=== PATIENT | female | born 1985 | race Caucasian/White ===

== ENCOUNTER → 2016-05-06 | Outpatient (CLI) | payer OTHER ==
--- NOTE | 2016-05-06 11:14 | REP ---
Clinical: Constipation. Technique: Upright view of the chest with supine and upright views of the abdomen and pelvis. Findings: Frontal view of the chest demonstrates no acute cardiopulmonary process or free air below the diaphragm to suspect pneumoperitoneum. Supine and upright views of the abdomen and pelvis suggest fecal stasis and possible constipation. Bowel gas pattern is otherwise nonspecific and without evidence for obstruction or perforation. No organomegaly. No abnormal calcifications. Skeletal structures intact. Impression: Mild fecal stasis and constipation suggested. Signed by Kumar Rodríguez MD 05/06/2016 11:06 A
--- NOTE | 2016-05-06 11:18 | REP ---
Clinical: Bronchitis type symptoms. Comparison: 01/12/2007 . Technique: PA and lateral. Findings: The mediastinum and cardiac silhouette are normal. The lung meza are clear and without acute consolidation, effusion, or pneumothorax. The skeletal structures are intact and normal. Impression: 1. No acute cardiopulmonary process. Signed by Kumar Rodríguez MD 05/06/2016 11:10 A
[2016-05-06 13:00] LABS: BASO # 0.2 K/mm3 (0.0-0.2); BASO % 2.4 % (0.0-1.0); EOS # 0.3 K/mm3 (0.0-0.50); EOS % 2.6 % (0.0-3.0); LARGE UNSTAINED CELL # 0.2 K/mm3 (0.0-0.4); LARGE UNSTAINED CELL % 1.9 % (0.0-4.0); LYMPH % 28.3 % (24.0-44.0); MEAN CORPUSCULAR HEMOGLOBIN 28.6 pg (27.0-33.0); MEAN CORPUSCULAR VOLUME 86.9 fl (80.0-96.0); MONO # 0.6 K/mm3 (0.0-0.8); MONO % 5.7 % (0.0-5.0); NEUTROPHILS # 5.9 K/mm3 (1.8-7.7); NEUTROPHILS % 59.1 % (36.0-66.0); PLATELET COUNT, AUTOMATED 291 k/mm3 (150-450); RED CELL DISTRIBUTION WIDTH 12.9 % (11.5-14.5)
[2016-05-06 14:07] LABS: ALBUMIN 3.7 GM/DL (3.2-5.2); ALBUMIN/GLOBULIN RATIO 1.19 (1.00-1.93); ALKALINE PHOSPHATASE 99 U/L (45-117); ALT/SGPT 34 U/L (12-78); ANION GAP 8 MEQ/L (8-16); AST/SGOT 25 U/L (15-37); BILIRUBIN,TOTAL 0.3 MG/DL (0.2-1.0); BLOOD UREA NITROGEN 12 MG/DL (7-18); CALCIUM LEVEL 8.7 MG/DL (8.5-10.1); CARBON DIOXIDE LEVEL 27 MEQ/L (21-32); CHLORIDE LEVEL 104 MEQ/L (98-107); CREATININE FOR GFR 0.93 MG/DL (0.55-1.02); GLOMERULAR FILTRATION RATE > 60.0 (>60); GLUCOSE, FASTING 90 MG/DL (70-105); POTASSIUM SERUM 4.7 MEQ/L (3.5-5.1); SODIUM LEVEL 139 MEQ/L (136-145); TOTAL PROTEIN 6.8 GM/DL (6.4-8.2)
== END ==
LOC: M WUC 10:32
PROVIDERS: ATTEND Physician Assistant
DX: J20.9 Acute bronchitis, unspecified (principal); K59.00 Constipation, unspecified; E10.9 Type 1 diabetes mellitus without complications

== ENCOUNTER → 2016-07-05 | Outpatient (REF) | payer OTHER ==
[2016-07-05 12:04] LABS: ALBUMIN 3.4 GM/DL (3.2-5.2); ALBUMIN/GLOBULIN RATIO 1.21 (1.00-1.93); ALKALINE PHOSPHATASE 103 U/L (45-117); ALT/SGPT 24 U/L (12-78); ANION GAP 7 MEQ/L (8-16); AST/SGOT 13 U/L (15-37); BILIRUBIN,TOTAL 0.2 MG/DL (0.2-1.0); BLOOD UREA NITROGEN 21 MG/DL (7-18); CALCIUM LEVEL 8.3 MG/DL (8.5-10.1); CARBON DIOXIDE LEVEL 26 MEQ/L (21-32); CHLORIDE LEVEL 109 MEQ/L (98-107); CHOLESTEROL LEVEL 204 MG/DL (<200); CREATININE FOR GFR 0.91 MG/DL (0.55-1.02); GLOMERULAR FILTRATION RATE > 60.0 (>60); GLUCOSE, FASTING 218 MG/DL (70-105); SODIUM LEVEL 142 MEQ/L (136-145); TOTAL PROTEIN 6.2 GM/DL (6.4-8.2); TRIGLYCERIDES LEVEL 115 MG/DL (<150)
[2016-07-05 12:06] LABS: POTASSIUM SERUM 5.2 MEQ/L (3.5-5.1)
== END ==
LOC: M SFHCCLAY 08:01
PROVIDERS: ATTEND Nurse Practitioner
DX: E10.9 Type 1 diabetes mellitus without complications (principal)

== ENCOUNTER → 2016-07-14 | Outpatient (REF) | payer OTHER ==
[2016-07-15 11:44] LABS: CALCIUM LEVEL 8.8 MG/DL (8.5-10.1); CREATININE FOR GFR 1.16 MG/DL (0.55-1.02); GLOMERULAR FILTRATION RATE 58.4 (>60); POTASSIUM SERUM 4.8 MEQ/L (3.5-5.1)
== END ==
LOC: M SFHCCLAY 15:16
PROVIDERS: ATTEND Nurse Practitioner
DX: N39.3 Stress incontinence (female) (male) (principal); E87.5 Hyperkalemia

== ENCOUNTER → 2016-10-08 | Outpatient (REF) | payer OTHER | LOC: M LAB REF 18:38 | PROVIDERS: ATTEND Physician Assistant | DX: J02.9 Acute pharyngitis, unspecified (principal) ==

== ENCOUNTER → 2016-10-20 | Outpatient (REF) | payer OTHER ==
[~2016-10-20] MED LIST: ASPI81TA85 PO; ATIV1TAB7 PO; HUMALOG PUMP; LISI40TAB PO; ZOLO50TA PO
== END ==
LOC: M LAB REF 17:14
PROVIDERS: ATTEND Specialist
DX: N39.3 Stress incontinence (female) (male) (principal)

== ENCOUNTER → 2016-10-22 | Outpatient (REF) | payer OTHER ==
[2016-10-22 16:48] LABS: ANION GAP 6 MEQ/L (8-16); BLOOD UREA NITROGEN 24 MG/DL (7-18); CALCIUM LEVEL 9.5 MG/DL (8.5-10.1); CARBON DIOXIDE LEVEL 28 MEQ/L (21-32); CHLORIDE LEVEL 107 MEQ/L (98-107); CREATININE FOR GFR 0.96 MG/DL (0.55-1.02); GLOMERULAR FILTRATION RATE > 60.0 (>60); GLUCOSE, FASTING 94 MG/DL (70-105); POTASSIUM SERUM 4.8 MEQ/L (3.5-5.1); SODIUM LEVEL 141 MEQ/L (136-145)
[2016-10-22 17:10] LABS: ALBUMIN 3.7 GM/DL (3.2-5.2); ALBUMIN/GLOBULIN RATIO 1.23 (1.00-1.93); ALKALINE PHOSPHATASE 108 U/L (45-117); ALT/SGPT 23 U/L (12-78); ANION GAP 7 MEQ/L (8-16); AST/SGOT 9 U/L (15-37); BILIRUBIN,TOTAL 0.2 MG/DL (0.2-1.0); BLOOD UREA NITROGEN 24 MG/DL (7-18); CALCIUM LEVEL 9.8 MG/DL (8.5-10.1); CARBON DIOXIDE LEVEL 27 MEQ/L (21-32); CHLORIDE LEVEL 107 MEQ/L (98-107); CHOLESTEROL LEVEL 197 MG/DL (<200); CREATININE FOR GFR 0.95 MG/DL (0.55-1.02); GLOMERULAR FILTRATION RATE > 60.0 (>60); GLUCOSE, FASTING 93 MG/DL (70-105); POTASSIUM SERUM 4.9 MEQ/L (3.5-5.1); SODIUM LEVEL 141 MEQ/L (136-145); TOTAL PROTEIN 6.7 GM/DL (6.4-8.2); TRIGLYCERIDES LEVEL 133 MG/DL (<150)
[2016-10-22 17:13] LABS: MEAN CORPUSCULAR HEMOGLOBIN 28.7 pg (27.0-33.0); MEAN CORPUSCULAR HGB CONC 33.4 g/dl (32.0-36.5); MEAN CORPUSCULAR VOLUME 85.8 fl (80.0-96.0); RED CELL DISTRIBUTION WIDTH 12.4 % (11.5-14.5); WHITE BLOOD COUNT 10.6 K/mm3 (4.0-10.0)
== END ==
LOC: M SFHCCLAY 10:10
PROVIDERS: ATTEND Nurse Practitioner
DX: E11.40 Type 2 diabetes mellitus with diabetic neuropathy, unspecified (principal)

== ENCOUNTER → 2016-11-05 | Day surgery (SDC) | payer OTHER ==
[~2016-11-05] VITALS: Ht 160 cm; Wt 91.6 kg
[~2016-11-05] MED LIST changes: +CETACAINE SPRAY 20GM (FLOOR STOCK) As Ordered ONE; +EPINEPHrine 1MG/ML INJ 30ML MD-VIAL As Ordered ONE; +LR 1,000 ML IV ONE; +LR 1,000 ML IV SCH; +MEPERIDINE INJ 25 MG/ML VIAL (J2175) IV PRN; +METHYLENE BLUE 0.5% (5MG/ML) 10 ML AMP (PROVAYBLUE)(Q9968 PER 1MG) As Ordered ONE; +METOCLOPRAMIDE INJ 10MG/2ML VIAL (J2765) IV PRN; +MIDAZOLAM INJ 2 MG/2 ML VIAL (J2250) As Ordered ONE; +ONDANSETRON 4MG/2ML VIAL (J2405) As Ordered ONE; +ONDANSETRON 4MG/2ML VIAL (J2405) IV PRN; +OXYMETAZOLINE NASAL SPRAY (AFRIN) As Ordered ONE; +PERCOCET 5MG/325MG TAB PO PRN; +PROPOFOL 200 MG/20 ML VIAL As Ordered ONE; +SUGAMMADEX SODIUM 500 MG/5 ML VIAL (BRIDION) As Ordered ONE; +fentaNYL 100 MCG/2 ML INJECTION (J3010) As Ordered ONE
[2016-11-05 09:51] LABS: CONTROL LINE UCG INT CTR LINE PRESENT
[2016-11-05] MEDS: fentaNYL 100 MCG/2 ML INJECTION (J3010) IV PRN ×2 (13:05→13:10)
[2016-11-05 14:55] VITALS: BP 141/84
--- NOTE | 2016-11-06 10:51 | RO ---
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 OPERATIVE PROCEDURE: Laryngoscopy and biopsy with suspension, microscope and esophagoscopy. SURGEON: Julio Reis MD RESIDENT SERVICE COORDINATOR: ANESTHESIA: FINDINGS: There were some leukoplakia anterior one-half of the left vocal cord. Biopsy was taken. DESCRIPTION OF PROCEDURE: Under general anesthesia, the patient intubated, the patient was draped in the usual manner. I used a dental guard during the procedure. I inserted the laryngoscope into the oral cavity, oropharynx and down into the larynx. I examined the area. The above findings were seen. I did biopsy the left vocal cord. Then, I removed the laryngoscope. I placed the rigid esophagoscope and passed it down behind the larynx. I then advanced it through the cricopharyngeal opening into the upper esophagus and then down to the lower esophagus to the stomach. No other nodules were seen. The patient tolerated the procedure well. The scope was removed. The patient was then extubated and transferred to the recovery room in excellent condition.
== END | disposition home or self-care (01) ==
LOC: M SDC 09:16
PROVIDERS: ATTEND Otolaryngology
DX: J38.3 Other diseases of vocal cords (principal); J37.0 Chronic laryngitis; R13.10 Dysphagia, unspecified; E10.9 Type 1 diabetes mellitus without complications; I10 Essential (primary) hypertension; R19.7 Diarrhea, unspecified; M81.0 Age-related osteoporosis without current pathological fracture; F32.9 Major depressive disorder, single episode, unspecified; J42 Unspecified chronic bronchitis; Z79.899 Other long term (current) drug therapy; Z79.82 Long term (current) use of aspirin; Z79.4 Long term (current) use of insulin; Z87.891 Personal history of nicotine dependence

== ENCOUNTER → 2016-11-26 | Outpatient (CLI) | payer OTHER ==
[~2016-11-26] MED LIST changes: -CETACAINE SPRAY 20GM (FLOOR STOCK) As Ordered ONE; -EPINEPHrine 1MG/ML INJ 30ML MD-VIAL As Ordered ONE; -LR 1,000 ML IV ONE; -LR 1,000 ML IV SCH; -MEPERIDINE INJ 25 MG/ML VIAL (J2175) IV PRN; -METHYLENE BLUE 0.5% (5MG/ML) 10 ML AMP (PROVAYBLUE)(Q9968 PER 1MG) As Ordered ONE; -METOCLOPRAMIDE INJ 10MG/2ML VIAL (J2765) IV PRN; -MIDAZOLAM INJ 2 MG/2 ML VIAL (J2250) As Ordered ONE; -ONDANSETRON 4MG/2ML VIAL (J2405) As Ordered ONE; -ONDANSETRON 4MG/2ML VIAL (J2405) IV PRN; -OXYMETAZOLINE NASAL SPRAY (AFRIN) As Ordered ONE; -PERCOCET 5MG/325MG TAB PO PRN; -PROPOFOL 200 MG/20 ML VIAL As Ordered ONE; -SUGAMMADEX SODIUM 500 MG/5 ML VIAL (BRIDION) As Ordered ONE; -fentaNYL 100 MCG/2 ML INJECTION (J3010) As Ordered ONE
--- NOTE | 2016-11-26 22:20 | REP ---
Soft-tissue neck ultrasound: 11/26/2016. Clinical history: Palpable lump about the left lateral neck just below her ear; states it was biopsied by ENT. Still uncomfortable. I do not have any prior pertinent studies. Findings: Sonographic evaluation in the subauricular region where the patient reported a palpable finding although she was not able to locate that finding today. Subcutaneous soft tissues show no discrete mass, cyst, architectural distortion or other acute finding. Impression: 1. No soft tissue nodule or mass in the neck in the region the patient indicated was problematic for her. There is a persistent palpable finding. Other imaging may be helpful, including CT of the neck, if not already done elsewhere. Signed by Yuval Bose MD 11/26/2016 10:39 P
== END ==
LOC: M RAD 16:39
PROVIDERS: ATTEND Nurse Practitioner
DX: R13.10 Dysphagia, unspecified (principal)

== ENCOUNTER → 2017-01-12 | Outpatient (CLI) | payer OTHER ==
[2017-01-12 14:33] LABS: HBsAg Prenatal NEGATIVE (NEGATIVE)
[2017-01-12 14:38] LABS: BASO % 0.4 % (0.0-1.0); EOS # 0.2 K/mm3 (0.0-0.50); EOS % 1.9 % (0.0-3.0); LARGE UNSTAINED CELL # 0.1 K/mm3 (0.0-0.4); LARGE UNSTAINED CELL % 1.1 % (0.0-4.0); LYMPH # 1.6 K/mm3 (1.5-4.5); LYMPH % 18.8 % (24.0-44.0); MEAN CORPUSCULAR HEMOGLOBIN 29.1 pg (27.0-33.0); MEAN CORPUSCULAR VOLUME 85.5 fl (80.0-96.0); MONO # 0.4 K/mm3 (0.0-0.8); MONO % 4.2 % (0.0-5.0); NEUTROPHILS # 6.4 K/mm3 (1.8-7.7); NEUTROPHILS % 73.5 % (36.0-66.0); PLATELET COUNT, AUTOMATED 247 k/mm3 (150-450); RED CELL DISTRIBUTION WIDTH 12.5 % (11.5-14.5); WHITE BLOOD COUNT 8.7 K/mm3 (4.0-10.0)
== END ==
LOC: M WUC 09:21
PROVIDERS: ATTEND Specialist
DX: Z36 Encounter for antenatal screening of mother (principal); Z3A.00 Weeks of gestation of pregnancy not specified

== ENCOUNTER → 2017-01-14 | Outpatient (REF) | payer OTHER | LOC: M LAB REF 12:55 | PROVIDERS: ATTEND Specialist | DX: Z36 Encounter for antenatal screening of mother (principal); Z3A.00 Weeks of gestation of pregnancy not specified ==

== ENCOUNTER → 2017-03-22 | Outpatient (CLI) | payer OTHER ==
--- NOTE | 2017-03-22 14:12 | REP ---
Clinical: Anatomical evaluation. Comparison: None . Findings: Examination demonstrates a single live intrauterine in transverse (head to maternal left side) presentation. motion is identified by technologist. Placenta is noted anteriorly and grade zero without evidence for placenta previa or abruption. Amniotic fluid volume is normal. Cervix measures 3.1 cm in length and appears closed. No evidence for nuchal cord. Gestational age by current measurements 20 weeks 3-day with JAVAN is 08/06/2017 . FHR equals 149 beats per minute. BPD 5..0 cm 21 weeks 1 day HC 17.8 cm 20 weeks 2 days AC 15.9 cm 21 weeks 0 days FL 3.3 cm 20 weeks 2 days HL 3.2 cm 20 weeks 4-day HC/AC ratio 1.12 Estimated weight 360 grams ( 56 percentile). Anatomical assessment demonstrates normal structures including cranium, choroid plexus, cavum, cerebellum/posterior fossa, facial features, lungs, four-chamber heart/ left ventricular outflow tract, diaphragm, stomach, cord insertion/three-vessel cord, kidneys/bladder, and extremities. Impression: 1. Single live intrauterine in transverse lie. Estimated weight within normal range. 2. Limited evaluation of the right cardiac ventricular outflow tract and spine due to positioning. Remainder of the anatomical assessment is complete and normal. Signed by Kumar Rodríguez MD 03/22/2017 02:03 P
== END ==
LOC: M SMT 12:58
PROVIDERS: ATTEND Specialist
DX: Z36.89 Encounter for other specified antenatal screening (principal); Z3A.20 20 weeks gestation of pregnancy

== ENCOUNTER → 2017-04-11 | Outpatient (REF) | payer OTHER | LOC: M LAB REF 18:36 | PROVIDERS: ATTEND Physician Assistant | DX: R10.30 Lower abdominal pain, unspecified (principal) ==

== ENCOUNTER → 2017-04-28 | Outpatient (CLI) | payer OTHER ==
[2017-04-28 12:22] LABS: HEMATOCRIT 31.8 % (36.0-47.0); HEMOGLOBIN 10.2 g/dl (12.0-16.0); MEAN CORPUSCULAR HEMOGLOBIN 27.6 pg (27.0-33.0); MEAN CORPUSCULAR HGB CONC 32.1 g/dl (32.0-36.5); MEAN CORPUSCULAR VOLUME 86.2 fl (80.0-96.0); PLATELET COUNT, AUTOMATED 256 10^3/uL (150-450); RED BLOOD COUNT 3.69 10^6/uL (4.00-5.40); RED CELL DISTRIBUTION WIDTH 12.6 % (11.5-14.5); WHITE BLOOD COUNT 10.7 10^3/uL (4.0-10.0)
== END ==
LOC: M SMT 09:04
DX: O24.112 Pre-existing type 2 diabetes mellitus, in pregnancy, second trimester (principal); Z36.89 Encounter for other specified antenatal screening; Z3A.25 25 weeks gestation of pregnancy
CPT/HCPCS: 85027

== ENCOUNTER → 2017-05-30 | Outpatient (CLI) | payer OTHER ==
[2017-05-30 13:59] LABS: ESTIMATED AVERAGE GLUCOSE 137 MG/DL (60-110); HEMOGLOBIN A1c 6.4 %
== END ==
LOC: M SMT 09:15
DX: O24.012 Pre-existing type 1 diabetes mellitus, in pregnancy, second trimester (principal); Z3A.30 30 weeks gestation of pregnancy; E10.9 Type 1 diabetes mellitus without complications
CPT/HCPCS: 83036

== ENCOUNTER → 2017-06-08 | Outpatient (REF) | payer OTHER | LOC: M LAB REF 16:06 | DX: R11.2 Nausea with vomiting, unspecified (principal) | CPT/HCPCS: 87086 ==

== ENCOUNTER → 2017-06-17 | Outpatient (REF) | payer OTHER | LOC: M LAB REF 14:39 | DX: K59.1 Functional diarrhea (principal) ==

== ENCOUNTER → 2017-06-21 | Outpatient (CLI) | payer OTHER ==
[2017-06-21 17:36] LABS: BASO % 0.4 % (0.0-1.0); EOS # 0.1 10^3/uL (0.0-0.50); HEMATOCRIT 33.5 % (36.0-47.0); IMMATURE GRANULOCYTE % 0.7 % (0-3.0); LYMPH # 1.9 10^3/uL (1.5-4.5); MEAN CORPUSCULAR HEMOGLOBIN 27.7 pg (27.0-33.0); MEAN CORPUSCULAR HGB CONC 32.8 g/dl (32.0-36.5); MEAN CORPUSCULAR VOLUME 84.4 fl (80.0-96.0); MONO # 0.7 10^3/uL (0.0-0.8); MONO % 5.7 % (0.0-5.0); NEUTROPHILS # 8.6 10^3/uL (1.8-7.7); NEUTROPHILS % 75.2 % (36.0-66.0); PLATELET COUNT, AUTOMATED 253 10^3/uL (150-450); RED BLOOD COUNT 3.97 10^6/uL (4.00-5.40); RED CELL DISTRIBUTION WIDTH 13.2 % (11.5-14.5); WHITE BLOOD COUNT 11.4 10^3/uL (4.0-10.0)
[2017-06-21 18:00] LABS: ALBUMIN 2.5 GM/DL (3.2-5.2); ALBUMIN/GLOBULIN RATIO 0.76 (1.00-1.93); ALKALINE PHOSPHATASE 132 U/L (45-117); ALT/SGPT 14 U/L (12-78); ANION GAP 9 MEQ/L (8-16); AST/SGOT 14 U/L (7-37); BILIRUBIN,TOTAL 0.2 MG/DL (0.2-1.0); BLOOD UREA NITROGEN 14 MG/DL (7-18); CALCIUM LEVEL 8.9 MG/DL (8.5-10.1); CARBON DIOXIDE LEVEL 22 MEQ/L (21-32); CHLORIDE LEVEL 109 MEQ/L (98-107); CREATININE FOR GFR 0.91 MG/DL (0.55-1.30); GLOMERULAR FILTRATION RATE > 60.0 (>60); GLUCOSE, FASTING 141 MG/DL (70-100); POTASSIUM SERUM 4.9 MEQ/L (3.5-5.1); SODIUM LEVEL 140 MEQ/L (136-145); TOTAL PROTEIN 5.8 GM/DL (6.4-8.2)
== END ==
LOC: M WUC 13:56
DX: O24.113 Pre-existing type 2 diabetes mellitus, in pregnancy, third trimester (principal); Z3A.00 Weeks of gestation of pregnancy not specified
CPT/HCPCS: 80053

== ENCOUNTER → 2017-07-04 | Outpatient (CLI) | payer OTHER | LOC: M SMT 12:59 | DX: O24.113 Pre-existing type 2 diabetes mellitus, in pregnancy, third trimester (principal); Z3A.35 35 weeks gestation of pregnancy | CPT/HCPCS: 76815 ==

== ENCOUNTER 2017-07-10 11:22 | Outpatient (CLI) | payer OTHER | END 2017-07-10 12:35 | disposition home or self-care (01) | LOC: M LDO 11:22 | DX: O26.893 Other specified pregnancy related conditions, third trimester (principal); O99.810 Abnormal glucose complicating pregnancy; Z96.41 Presence of insulin pump (external) (internal); Z3A.36 36 weeks gestation of pregnancy; Z79.82 Long term (current) use of aspirin; Z79.899 Other long term (current) drug therapy; Z79.4 Long term (current) use of insulin ==

== ENCOUNTER 2017-07-11 06:29 | Inpatient (IN) | payer OTHER ==
[2017-07-11] MEDS ORDERED: LR 1,000 ML IV (07:19)
[2017-07-11 08:17] LABS: BEDSIDE GLUCOSE 100 MG/DL (70-105)
[2017-07-11 09:20] LABS: HEMATOCRIT 32.9 % (36.0-47.0); MEAN CORPUSCULAR HEMOGLOBIN 27.7 pg (27.0-33.0); MEAN CORPUSCULAR HGB CONC 33.4 g/dl (32.0-36.5); MEAN CORPUSCULAR VOLUME 82.9 fl (80.0-96.0); PLATELET COUNT, AUTOMATED 213 10^3/uL (150-450); RED BLOOD COUNT 3.97 10^6/uL (4.00-5.40); RED CELL DISTRIBUTION WIDTH 13.2 % (11.5-14.5); WHITE BLOOD COUNT 10.8 10^3/uL (4.0-10.0)
[2017-07-11 09:27] LABS: ALBUMIN 2.1 GM/DL (3.2-5.2); ALBUMIN/GLOBULIN RATIO 0.64 (1.00-1.93); ALKALINE PHOSPHATASE 150 U/L (45-117); ALT/SGPT 14 U/L (12-78); ANION GAP 10 MEQ/L (8-16); AST/SGOT 14 U/L (7-37); BILIRUBIN,TOTAL 0.1 MG/DL (0.2-1.0); BLOOD UREA NITROGEN 14 MG/DL (7-18); CALCIUM LEVEL 8.3 MG/DL (8.5-10.1); CARBON DIOXIDE LEVEL 21 MEQ/L (21-32); CHLORIDE LEVEL 110 MEQ/L (98-107); CREATININE FOR GFR 0.86 MG/DL (0.55-1.30); GLOMERULAR FILTRATION RATE > 60.0 (>60); GLUCOSE, FASTING 106 MG/DL (70-100); POTASSIUM SERUM 4.6 MEQ/L (3.5-5.1); SODIUM LEVEL 141 MEQ/L (136-145); TOTAL PROTEIN 5.4 GM/DL (6.4-8.2)
[2017-07-11] MEDS ORDERED: INSULIN IV RATE CHANGE DOCUMENTATION ML/HR XX (11:15)
[2017-07-11] MEDS: NS 1,000 ML IV (11:38)
[2017-07-11] MEDS: PENICILLIN G POTASSIUM IV 5 MU in D5W MINI-BAG PLUS 100 ML IV (11:38)
[2017-07-11] MEDS: BETAMETHASONE SOLUSPAN 6MG/ML INJ 5ML (J0702) IM (12:01)
[2017-07-11] MEDS: OXYTOCIN DRIP 30 UNITS in APPROPRIATE DILUENT 1 EA IV (12:02)
[2017-07-11] MEDS: PROMETHAZINE INJ 25 MG/ML VIAL (J2550) IV (13:15)
[2017-07-11] MEDS: BUTORPHANOL 2 MG/ML INJ (J0595) IV (13:16)
[2017-07-11 13:31] LABS: BEDSIDE GLUCOSE 88 MG/DL (70-105)
[2017-07-11 13:31] LABS: BEDSIDE GLUCOSE 95 MG/DL (70-105)
[2017-07-11] MEDS: PENICILLIN G POTASSIUM IV 2.5 MU in APPROPRIATE DILUENT 1 EA IV ×3 (15:00→23:35)
[2017-07-11 15:18] LABS: BEDSIDE GLUCOSE 99 MG/DL (70-105)
[2017-07-11] MEDS ORDERED: LABETALOL HCL 100 MG/20 ML VIAL As Ordered (15:19)
[2017-07-11] MEDS: LABETALOL HCL 100 MG/20 ML VIAL IV (15:21)
[2017-07-11] MEDS ORDERED: FENTANYL 2MCG/ML ROPIVACAINE 0.2% IN 0.9% NACL 200ML IVBAG As Ordered (15:24)
[2017-07-11] MEDS ORDERED: LACTATED RINGER'S 1000 ML IV (15:30)
[2017-07-11] MEDS ORDERED: EPIDURAL COMMENT XX (15:30)
[2017-07-11] MEDS ORDERED: EPIDURAL/PCA KEYS XX (15:30)
[2017-07-11] MEDS ORDERED: ePHEDrine SULFATE 25 MG/5 ML(5MG/ML) SYRINGE IV (15:30)
[2017-07-11] MEDS ORDERED: ONDANSETRON 4MG/2ML VIAL (J2405) IV (15:30)
[2017-07-11] MEDS ORDERED: diphenhydrAMINE INJ 50MG/ML VIAL (J1200) IV (15:30)
[2017-07-11] MEDS ORDERED: REFRIGERATOR IV KEYS XX (15:30)
[2017-07-11] MEDS ORDERED: FENTANYL/ROPIVACAINE/NACL BAG 200 ML EPIDURAL (15:30)
[2017-07-11] MEDS ORDERED: NALOXONE INJ 0.4 MG/1 ML VIAL (J2310) IV (15:30)
[2017-07-11 17:42] LABS: BEDSIDE GLUCOSE 118 MG/DL (70-105)
[2017-07-11] MEDS: INSULIN HUMAN REGULAR 100 UNITS in NS 99 ML IV (18:33)
[2017-07-12 00:36] LABS: BEDSIDE GLUCOSE 93 MG/DL (70-105)
[2017-07-12 00:36] LABS: BEDSIDE GLUCOSE 120 MG/DL (70-105)
[2017-07-12 00:36] LABS: BEDSIDE GLUCOSE 95 MG/DL (70-105)
[2017-07-12 01:50] LABS: CORD GAS ABE A -11.7; CORD GAS HCO3 A 17.1 MEQ/L; CORD GAS O2 SAT A 60.9 %; CORD GAS PCO2 A 49.3 mmHg; CORD GAS PH A 7.159 UNITS; CORD GAS PO2 A 28.7 mmHg; CORD GAS SBC A 14.8 MEQ/L; CORD GAS TCO2 A 18.7 MEQ/L
[2017-07-12] MEDS ORDERED: LR 1,000 ML IV (01:52)
[2017-07-12 01:53] LABS: CORD GAS ABE V -8.9; CORD GAS HCO3 V 18.2 MEQ/L; CORD GAS O2 SAT V 72.4 %; CORD GAS PCO2 V 43.2 mmHg; CORD GAS PH V 7.242 UNITS; CORD GAS PO2 V 31.7 mmHg; CORD GAS SBC V 16.9 MEQ/L; CORD GAS TCO2 V 19.5 MEQ/L
[2017-07-12] MEDS ORDERED: PROMETHAZINE 25 MG TAB PO (02:00)
[2017-07-12] MEDS ORDERED: ONDANSETRON 4MG/2ML VIAL (J2405) IV (02:00)
[2017-07-12] MEDS ORDERED: DIBUCAINE 1% OINTMENT 30GM TOP (02:00)
[2017-07-12] MEDS ORDERED: DOCUSATE SODIUM 100 MG CAP PO (02:00)
[2017-07-12] MEDS: MEASLES,MUMPS,RUBELLA VACCINE INJ (MMR-II) (90707) SC (03:57)
[2017-07-12] MEDS: RHOGAM 300 MCG (1500 IU) INJ (J2790) IM (03:57)
[2017-07-12] MEDS: LACTATED RINGER'S 1000 ML IV (04:23)
[2017-07-12] MEDS: OXYTOCIN DRIP 30 UNITS in APPROPRIATE DILUENT 1 EA IV (04:23)
[2017-07-12 05:05] LABS: BEDSIDE GLUCOSE 102 MG/DL (70-105)
[2017-07-12 06:54] LABS: BEDSIDE GLUCOSE 119 MG/DL (70-105)
[2017-07-12 08:44] LABS: HEMATOCRIT 29.8 % (36.0-47.0); MEAN CORPUSCULAR HEMOGLOBIN 27.6 pg (27.0-33.0); MEAN CORPUSCULAR HGB CONC 33.6 g/dl (32.0-36.5); MEAN CORPUSCULAR VOLUME 82.3 fl (80.0-96.0); PLATELET COUNT, AUTOMATED 225 10^3/uL (150-450); RED BLOOD COUNT 3.62 10^6/uL (4.00-5.40); RED CELL DISTRIBUTION WIDTH 13.5 % (11.5-14.5); WHITE BLOOD COUNT 20.6 10^3/uL (4.0-10.0)
[2017-07-12] MEDS: ACETAMINOPHEN 500 MG TAB PO ×2 (09:21→17:38)
[2017-07-12] MEDS: PRENATAL VITAMINS CHEWABLE TABLET PO (09:21)
[2017-07-12 09:36] LABS: ALBUMIN 1.8 GM/DL (3.2-5.2); ALBUMIN/GLOBULIN RATIO 0.67 (1.00-1.93); ALKALINE PHOSPHATASE 113 U/L (45-117); ALT/SGPT 13 U/L (12-78); ANION GAP 10 MEQ/L (8-16); AST/SGOT 16 U/L (7-37); BILIRUBIN,TOTAL 0.3 MG/DL (0.2-1.0); BLOOD UREA NITROGEN 12 MG/DL (7-18); CALCIUM LEVEL 7.8 MG/DL (8.5-10.1); CARBON DIOXIDE LEVEL 22 MEQ/L (21-32); CHLORIDE LEVEL 110 MEQ/L (98-107); CREATININE FOR GFR 0.86 MG/DL (0.55-1.30); GLOMERULAR FILTRATION RATE > 60.0 (>60); GLUCOSE, FASTING 81 MG/DL (70-100); LDH LACTATE DEHYDROGENASE 147 U/L (84-246); POTASSIUM SERUM 4.3 MEQ/L (3.5-5.1); SODIUM LEVEL 142 MEQ/L (136-145); TOTAL PROTEIN 4.5 GM/DL (6.4-8.2)
[2017-07-12] MEDS: IBUPROFEN 800 MG TAB PO ×2 (13:53→22:21)
[2017-07-13] MEDS: ACETAMINOPHEN 500 MG TAB PO (05:56)
[2017-07-13] MEDS: IBUPROFEN 800 MG TAB PO (05:56)
[2017-07-13] MEDS: ASPIRIN 81 MG CHEW TABLET PO (08:46)
[2017-07-13] MEDS: PRENATAL VITAMINS CHEWABLE TABLET PO (08:46)
[2017-07-13] MEDS: LISINOPRIL 40 MG TAB PO (08:47)
[2017-07-13] MEDS: SERTRALINE HCL 25 MG TABLET PO (08:47)
== END 2017-07-13 16:00 | disposition home or self-care (01) | DRG 560 ==
LOC: M LDO 06:29 → M OBS 07-12 03:44 → M LDI 07:23
PROC: 10E0XZZ Delivery of Products of Conception, External Approach (ICD-10-PCS; principal; 2017-07-12)
PROC: 0HQ9XZZ Repair Perineum Skin, External Approach (ICD-10-PCS; 2017-07-12)
DX: O42.013 Preterm premature rupture of membranes, onset of labor within 24 hours of rupture, third trimester (principal); Z3A.35 35 weeks gestation of pregnancy; O24.02 Pre-existing type 1 diabetes mellitus, in childbirth; E10.9 Type 1 diabetes mellitus without complications; Z79.4 Long term (current) use of insulin; O99.824 Streptococcus B carrier state complicating childbirth; O70.0 First degree perineal laceration during delivery; Z37.0 Single live birth

== ENCOUNTER → 2017-10-31 | Outpatient (REF) | payer OTHER ==
[2017-11-03 14:43] LABS: HPV HYBRID CAPTURE II Negative (Negative)
== END ==
LOC: M LAB REF 13:59
DX: Z12.4 Encounter for screening for malignant neoplasm of cervix (principal)
CPT/HCPCS: 88142

== ENCOUNTER → 2017-11-28 | Outpatient (REF) | payer OTHER | LOC: M LAB REF 17:27 | DX: B07.9 Viral wart, unspecified (principal) ==

== ENCOUNTER → 2018-02-19 | Outpatient (CLI) | payer OTHER ==
[2018-02-19 10:41] LABS: ANION GAP 7 MEQ/L (8-16); BLOOD UREA NITROGEN 19 MG/DL (7-18); CALCIUM LEVEL 8.5 MG/DL (8.5-10.1); CARBON DIOXIDE LEVEL 27 MEQ/L (21-32); CHLORIDE LEVEL 106 MEQ/L (98-107); CREATININE FOR GFR 1.26 MG/DL (0.55-1.30); GLOMERULAR FILTRATION RATE 52.7 (>60); GLUCOSE, FASTING 165 MG/DL (70-100); POTASSIUM SERUM 4.9 MEQ/L (3.5-5.1); SODIUM LEVEL 140 MEQ/L (136-145)
== END ==
LOC: M LAB 09:33
DX: M65.331 Trigger finger, right middle finger (principal)
CPT/HCPCS: 93005

== ENCOUNTER 2018-06-16 08:21 | Day surgery (SDC) | payer OTHER ==
[~2018-06-16] VITALS: Ht 157.5 cm; Wt 86.2 kg
[~2018-06-16 08:21] MED LIST changes: +ASPI81CH PO; +ETONOGESTREL; +HUMA100I3 SC; +IBUP-1114 PO; +LISI40TA PO; -LISI40TAB PO; +PRENTAB9 PO; +SERT25TA PO; +TYLE500T78 PO; +ZOLO25TA PO; +ZYRT10CA5 PO
[2018-06-16] MEDS ORDERED: fentaNYL 100 MCG/2 ML INJECTION (J3010) As Ordered ONE ×3 (09:04→11:06)
[2018-06-16] MEDS ORDERED: MIDAZOLAM INJ 2 MG/2 ML VIAL (J2250) As Ordered ONE ×2 (09:04→09:31)
[2018-06-16 09:11] LABS: URINE PREG TEST NEGATIVE (NEGATIVE)
[2018-06-16] MEDS ORDERED: SCOPOLAMINE 1MG TRANSDERMAL PATCH As Ordered ONE (09:24)
[2018-06-16] MEDS: MIDAZOLAM INJ 2 MG/2 ML VIAL (J2250) IV SCH (09:31)
[2018-06-16] MEDS ORDERED: PROPOFOL 200 MG/20 ML VIAL As Ordered ONE (09:31)
[2018-06-16] MEDS ORDERED: LIDOCAINE 2% INJ 100 MG/5 ML SDV (FOR ANES.) As Ordered ONE (09:31)
[2018-06-16] MEDS ORDERED: ROCURONIUM BROMIDE 50 MG/5 ML VIAL As Ordered ONE ×2 (09:31→11:10)
[2018-06-16] MEDS: fentaNYL 100 MCG/2 ML INJECTION (J3010) IV SCH (09:31)
[2018-06-16] MEDS ORDERED: PHENYLephrine HCL 500 MCG/5 ML (100MCG/ML) SYRINGE (J2370) As Ordered ONE (10:30)
[2018-06-16] MEDS ORDERED: SCOPOLAMINE 1MG TRANSDERMAL PATCH TOP ONE (10:30)
[2018-06-16] MEDS ORDERED: METOCLOPRAMIDE INJ 10MG/2ML VIAL (J2765) As Ordered ONE (10:56)
[2018-06-16] MEDS ORDERED: ePHEDrine SULFATE 25 MG/5 ML(5MG/ML) SYRINGE As Ordered ONE (11:03)
[2018-06-16] MEDS ORDERED: ONDANSETRON 4MG/2ML VIAL (J2405) As Ordered ONE (11:54)
[2018-06-16] MEDS ORDERED: GLYCOPYRROLATE INJ 0.2 MG/ML 2 ML VIAL As Ordered ONE (11:54)
[2018-06-16] MEDS ORDERED: NEOSTIGMINE 10 MG/10 ML VIAL (J2710) As Ordered ONE (11:54)
[2018-06-16] MEDS ORDERED: ONDANSETRON 4MG/2ML VIAL (J2405) IV PRN (13:00)
[2018-06-16] MEDS ORDERED: PERCOCET 5MG/325MG TAB PO PRN (13:00)
[2018-06-16] MEDS ORDERED: LR 1,000 ML IV SCH ×2 (13:00)
[2018-06-16] MEDS ORDERED: fentaNYL 100 MCG/2 ML INJECTION (J3010) IV PRN (13:00)
--- NOTE | 2018-06-16 13:03 | REP ---
LEFT ANKLE, TWENTY-ONE VIEWS: HISTORY: Fibular fracture. Twenty-one portable radiographs were obtained with a C-arm. Sequential radiographs demonstrate the patient to be status ORIF of a fracture of the distal fibula. A fixation plate and screws are present. There is anatomic alignment. Fluoro time 1 minute 12 seconds. IMPRESSION: The patient is status post ORIF of a fracture of the distal fibula. There is anatomic alignment. Electronically Signed by Alex Lockwood MD 06/16/2018 01:10 P
--- NOTE | 2018-06-16 13:55 | REP ---
LEFT ANKLE, THREE VIEWS: HISTORY: Postop. COMPARISON: Intraoperative radiographs, 06/16/2018. A plaster cast is present obscuring detail. The patient is status post ORIF of a fracture of the distal fibula. A fixation plate and screws are present. The joint space is normal in appearance. IMPRESSION: The patient is status post ORIF of a fracture of the distal fibula. There is anatomic alignment. Electronically Signed by Alex Lockwood MD 06/16/2018 01:56 P
[2018-06-16] MEDS ORDERED: PROMETHAZINE INJ 25 MG/ML VIAL (J2550) IV ONE (14:30)
[2018-06-16 14:36] VITALS: BP 140/82
--- NOTE | 2018-06-16 20:41 | RO ---
DATE OF PROCEDURE: 06/16/2018 PREPROCEDURE DIAGNOSIS: Left bimalleolar ankle fracture. POSTPROCEDURE DIAGNOSIS: Left bimalleolar ankle fracture. PROCEDURE: Left ankle open reduction, internal fixation (ORIF). SURGEON: Gail Stokes MD INTERNET MARKETING ANALYST: DAGOBERTO Collins ANESTHESIA: General endotracheal anesthesia/popliteal block. SPECIMENS: None. ESTIMATED BLOOD LOSS : 10 mL. COMPLICATIONS: None. IMPLANTS: Synthes 7-hold one-third tibial plate with associated 3.5 mm cortical screws and 4.0 mm cancellus screws. One 3.5 mm lag screw. INDICATIONS: Cheryl Moreno is a 33-year-old female who sustained a mechanical fall resulting in a left bimalleolar ankle fracture. The patient was evaluated in the office and was found to have a soft tissue envelope amenable to surgery. She presents today for operative fixation. Risks and benefits of surgery were discussed with the patient in detail and include, but are not limited to infection, damage to nerves and blood vessels, need for additional procedures, continued pain and stiffness. Informed consent was obtained in the office. DESCRIPTION OF PROCEDURE: The patient was met in the preoperative holding area where her cast was taken down. Skin was examined and was still found to be amenable for surgery. The left lower extremity was marked as the corrective operative site. She was then taken to the postanesthesia care unit (PACU) where she underwent a popliteal nerve block by anesthesia. Following that, the patient went to the operating room and was placed in the supine position on the operating room table. Her bony prominences were all padded. She underwent general anesthesia without difficulty. A bump was placed under the ipsilateral hip. A well padded tourniquet was placed on the upper thigh. Chlorhexidine scrub was performed of the left lower extremity. Following this, the left lower extremity was prepped and draped in the normal sterile fashion. At this point, an incision time-out was held where the correct patient, operative site, and operative procedure were verified. Appropriate radiographs were displayed in the operating room. An incision was made directly lateral over the distal fibula. Careful dissection was performed and the superficial peroneal nerve was found to be quite posterior and actually lay more over the peroneal fascia. This required me to dissect it out in its entirety distally so that I could retract it anteriorly and able to be able to access the fibula. The nerve was protected with careful retraction by DAGOBERTO Collins throughout he case. The fracture was identified, it was cleaned of hematoma and debris. Irrigation of the fracture site was performed. It was then reduced at this point with reduction clamps and held in place with a 0.062 wire. Satisfactory reduction was confirmed on AP, lateral and mortise views. I then placed a 3.5 mm lag screw. Following this, a 7-hole plate was selected and was secured to the bone using 3.5 mm screws proximally and 4.0 mm screws distally. Again, AP, lateral and mortise views were performed and found to be satisfactory. I did perform external rotation stress test under light fluoroscopy and there was no widening of the medial clear space. Decision was made to hold off on a syndesmotic screw. Following this, copious irrigation was performed. Subcutaneous tissues were closed with #2-0 Vicryl and skin was closed using #3-0 nylon. The patient was placed into a well padded cast. Tourniquet time was 74 minutes. PLAN: The patient will be nonweightbearing in the left lower extremity. She will be on aspirin 81 mg by mouth twice a day for deep vein thrombosis (DVT) prophylaxis. We will see her back in 1 week for a cast change and wound check, as she is diabetic.
== END 2018-06-16 14:52 | disposition home or self-care (01) ==
LOC: M SDC 08:21
PROVIDERS: ATTEND Orthopaedic Surgery
DX: S82.842A Displaced bimalleolar fracture of left lower leg, initial encounter for closed fracture (principal); W19.XXXA Unspecified fall, initial encounter; Y92.89 Other specified places as the place of occurrence of the external cause; Y93.9 Activity, unspecified; E10.9 Type 1 diabetes mellitus without complications; Z79.4 Long term (current) use of insulin; Z79.82 Long term (current) use of aspirin; Z79.899 Other long term (current) drug therapy; Z96.41 Presence of insulin pump (external) (internal)
CPT/HCPCS: 27814; 64445; 73610; 84703; C1713; J0690; J2250; J2370; J2405; J2710; J2765; J3010

== ENCOUNTER → 2019-02-14 | Outpatient (CLI) | payer OTHER ==
[~2019-02-14] MED LIST changes: -ASPI81CH PO; +ASPI81CH49 PO; -SERT25TA PO; +SERT25TA85 PO
[2019-02-14 20:53] LABS: BLOOD UREA NITROGEN 19 MG/DL (7-18); CALCIUM LEVEL 8.8 MG/DL (8.5-10.1); CARBON DIOXIDE LEVEL 28 MEQ/L (21-32); CHLORIDE LEVEL 107 MEQ/L (98-107); CHOLESTEROL LEVEL 190 MG/DL (<200); CHOLESTEROL RISK RATIO 5.937 (<5); CREATININE FOR GFR 1.09 MG/DL (0.55-1.30); GLOMERULAR FILTRATION RATE > 60.0 (>60); GLUCOSE, FASTING 159 MG/DL (70-100); HDL CHOLESTEROL 32 MG/DL (>40); LDL CHOLESTEROL 113 MG/DL (<100); NON-HDL-C 158 MG/DL; POTASSIUM SERUM 4.6 MEQ/L (3.5-5.1); SODIUM LEVEL 138 MEQ/L (136-145); TRIGLYCERIDES LEVEL 225 MG/DL (<150)
== END ==
LOC: M WUC 15:47
PROVIDERS: ATTEND Nurse Practitioner Family
DX: E10.649 Type 1 diabetes mellitus with hypoglycemia without coma (principal)

== ENCOUNTER → 2019-06-13 | Outpatient (CLI) | payer BC, OTHER ==
[2019-06-13 13:03] LABS: ALBUMIN 3.8 GM/DL (3.2-5.2); ALT/SGPT 23 U/L (12-78); BILIRUBIN,TOTAL 0.3 MG/DL (0.2-1.0); BLOOD UREA NITROGEN 21 MG/DL (7-18); CALCIUM LEVEL 8.8 MG/DL (8.5-10.1); CARBON DIOXIDE LEVEL 27 MEQ/L (21-32); CHLORIDE LEVEL 109 MEQ/L (98-107); CHOLESTEROL LEVEL 189 MG/DL (<200); CREATININE FOR GFR 1.04 MG/DL (0.55-1.30); GLOMERULAR FILTRATION RATE > 60.0 (>60); GLUCOSE, FASTING 170 MG/DL (70-100); HDL CHOLESTEROL 35 MG/DL (>40); LDL CHOLESTEROL 116 MG/DL (<100); NON-HDL-C 154 MG/DL; POTASSIUM SERUM 4.8 MEQ/L (3.5-5.1); SODIUM LEVEL 140 MEQ/L (136-145); TOTAL PROTEIN 6.5 GM/DL (6.4-8.2); TRIGLYCERIDES LEVEL 191 MG/DL (<150)
== END ==
LOC: M WUC 08:41
PROVIDERS: ATTEND Nurse Practitioner Family
DX: E78.2 Mixed hyperlipidemia (principal)

== ENCOUNTER → 2019-09-11 | Outpatient (CLI) | payer BC ==
[2019-09-11 14:00] LABS: ALBUMIN 3.7 GM/DL (3.2-5.2); ALT/SGPT 24 U/L (12-78); BILIRUBIN,TOTAL 0.3 MG/DL (0.2-1.0); BLOOD UREA NITROGEN 15 MG/DL (7-18); CALCIUM LEVEL 9.1 MG/DL (8.5-10.1); CARBON DIOXIDE LEVEL 25 MEQ/L (21-32); CHLORIDE LEVEL 107 MEQ/L (98-107); CHOLESTEROL LEVEL 187 MG/DL (<200); CHOLESTEROL RISK RATIO 5.054 (<5); CREATININE FOR GFR 0.99 MG/DL (0.55-1.30); GLOMERULAR FILTRATION RATE > 60.0 (>60); GLUCOSE, FASTING 140 MG/DL (70-100); HDL CHOLESTEROL 37 MG/DL (>40); LDL CHOLESTEROL 119 MG/DL (<100); NON-HDL-C 150 MG/DL; POTASSIUM SERUM 4.6 MEQ/L (3.5-5.1); SODIUM LEVEL 140 MEQ/L (136-145); TOTAL PROTEIN 6.5 GM/DL (6.4-8.2); TRIGLYCERIDES LEVEL 156 MG/DL (<150)
== END ==
LOC: M WUC 10:56
PROVIDERS: ATTEND Nurse Practitioner Family
DX: E78.2 Mixed hyperlipidemia (principal)

== ENCOUNTER → 2020-01-25 | Outpatient (CLI) | payer BC, OTHER ==
[~2020-01-25] MED LIST changes: -ASPI81TA85 PO; +ASPI81TA86 PO
[2020-01-25 10:39] LABS: ALBUMIN 3.4 GM/DL (3.2-5.2); ALT/SGPT 26 U/L (12-78); BILIRUBIN,TOTAL 0.4 MG/DL (0.2-1.0); BLOOD UREA NITROGEN 15 MG/DL (7-18); CALCIUM LEVEL 8.6 MG/DL (8.5-10.1); CARBON DIOXIDE LEVEL 25 MEQ/L (21-32); CHLORIDE LEVEL 108 MEQ/L (98-107); CHOLESTEROL LEVEL 182 MG/DL (<200); CHOLESTEROL RISK RATIO 4.789 (<5); CREATININE FOR GFR 1.01 MG/DL (0.55-1.30); GLOMERULAR FILTRATION RATE > 60.0 (>60); GLUCOSE, FASTING 160 MG/DL (70-100); HDL CHOLESTEROL 38 MG/DL (>40); LDL CHOLESTEROL 112 MG/DL (<100); NON-HDL-C 144 MG/DL; POTASSIUM SERUM 4.8 MEQ/L (3.5-5.1); SODIUM LEVEL 140 MEQ/L (136-145); TOTAL PROTEIN 6.3 GM/DL (6.4-8.2); TRIGLYCERIDES LEVEL 160 MG/DL (<150)
== END ==
LOC: M PLALAB 08:21
PROVIDERS: ATTEND Nurse Practitioner Family
DX: E78.2 Mixed hyperlipidemia (principal)

== ENCOUNTER → 2020-04-22 | Outpatient (REF) | payer BC | LOC: M LAB REF 16:55 | PROVIDERS: ATTEND Nurse Practitioner Family | DX: E10.649 Type 1 diabetes mellitus with hypoglycemia without coma (principal) ==

== ENCOUNTER → 2020-08-20 | Outpatient (REF) | payer BC ==
[~2020-08-20] MED LIST changes: -LISI40TA PO; +LISI40TA4 PO
[2020-08-20 13:36] LABS: HEMATOCRIT 38.3 % (36.0-47.0); HEMOGLOBIN 12.1 g/dl (12.0-15.5); MEAN CORPUSCULAR HEMOGLOBIN 27.8 pg (27.0-33.0); MEAN CORPUSCULAR HGB CONC 31.6 g/dl (32.0-36.5); PLATELET COUNT, AUTOMATED 268 10^3/uL (150-450); RED BLOOD COUNT 4.35 10^6/uL (4.00-5.40); WHITE BLOOD COUNT 8.1 10^3/uL (4.0-10.0)
[2020-08-20 14:16] LABS: HEMOGLOBIN A1c 6.8 %
[2020-08-20 14:58] LABS: HEPATITIS C VIRUS ABY INDEX < 0.0 INDEX (<0.8); HIV 1&2 SCREEN CENTAUR NEGATIVE (NEGATIVE)
== END ==
LOC: M PLALAB 11:04
PROVIDERS: ATTEND Specialist
DX: Z34.81 Encounter for supervision of other normal pregnancy, first trimester (principal)

== ENCOUNTER → 2020-09-03 | Outpatient (REF) | payer BC | LOC: M SFHCWAGY 16:58 | PROVIDERS: ATTEND Advanced Practice Midwife | DX: R10.2 Pelvic and perineal pain (principal) ==

== ENCOUNTER → 2020-09-15 | Outpatient (CLI) | payer BC ==
--- NOTE | 2020-09-15 17:03 | REP ---
INDICATION: 1ST TRIMESTER, LESS THAN 14 WEEKS COMPARISON: None. TECHNIQUE: Transabdominal 1st trimester obstetrical ultrasound with color Doppler evaluation. FINDINGS: Single live early intrauterine is appreciated. Gestational sac with early fetus identified. Mabie-rump length of 7.3 cm corresponds to 13 weeks 3 days gestational age with estimated date of delivery 03/20/2021. heart rate equals 153 beats per minute. No gross abnormalities are identified. IMPRESSION: Single live early intrauterine at 13 weeks 3 days gestational age. Complete anatomical assessment should be performed and 19-20 weeks. <Electronically signed by Kumar Rodríguez > 09/15/20 [id number]
== END ==
LOC: M RAD 16:22
PROVIDERS: ATTEND Advanced Practice Midwife
DX: O99.891 Other specified diseases and conditions complicating pregnancy (principal); R10.2 Pelvic and perineal pain; Z3A.13 13 weeks gestation of pregnancy

== ENCOUNTER → 2020-10-30 | Outpatient (CLI) | payer OTHER | LOC: M WHC 16:01 | PROVIDERS: ATTEND Obstetrics & Gynecology | DX: Z36.89 Encounter for other specified antenatal screening (principal); Z3A.19 19 weeks gestation of pregnancy ==

== ENCOUNTER → 2020-10-30 | Outpatient (CLI) | payer OTHER ==
--- NOTE | 2020-10-30 15:09 | REP ---
INDICATION: ANATOMY. COMPARISON: None. TECHNIQUE: Transabdominal FINDINGS: Multiple ultrasonographic images of the gravid uterus shows a single living intrauterine gestation in variable positions. Doppler interrogation of the heart shows a heart rate of 129 beats per minute. The subjective amniotic fluid volume is within normal limits. The placenta is posterior and not low-lying. The cervix measures 3.6 cm in length and is closed. BPD: 4.8 cm 20 weeks 3 days HC: 17.1 cm 19 weeks 5 days AC: 14.1 cm 19 weeks 3 days FL 2.9 cm 19 weeks 0 days The estimated weight is 288 g which is at the 42nd percentile for a 19 week 3 day gestational age. The anatomical structures seen to be unremarkable are as follows: Thalami, cavum septum pellucidum, cerebellum, cisterna magna, cerebral ventricles, spine, kidneys, cord insertion, three-vessel umbilical cord, four-chamber heart, right and left ventricular outflow tracts, and upper lower extremities. Structures suboptimally visualized are as follows: Urinary bladder, stomach, and upper lip. IMPRESSION: Single living intrauterine gestation as described above with an estimated gestational age of 19 weeks 5 days via composite criteria and an estimated date of delivery of 03/21/2021 by today's exam. No anomalies were detected, however, I recommend a follow-up examination to better visualize those structures not well seen today as described above. <Electronically signed by Jluis Smith > 10/30/20 [id number]
== END ==
LOC: M WHC 14:00
PROVIDERS: ATTEND Specialist
DX: O24.012 Pre-existing type 1 diabetes mellitus, in pregnancy, second trimester (principal)

== ENCOUNTER → 2020-11-25 | Outpatient (CLI) | payer OTHER ==
[~2020-11-25] MED LIST changes: +OMEP40CA4 PO; +PRENTAB16 PO
== END ==
LOC: M WHC 07:58
PROVIDERS: ATTEND Obstetrics & Gynecology
DX: Z36.2 Encounter for other antenatal screening follow-up (principal); Z3A.23 23 weeks gestation of pregnancy

== ENCOUNTER → 2020-12-11 | Outpatient (CLI) | payer OTHER ==
[~2020-12-11] MED LIST changes: -OMEP40CA4 PO; -PRENTAB16 PO
[2020-12-11 17:33] LABS: HEMATOCRIT 32.5 % (36.0-47.0); HEMOGLOBIN 10.4 g/dl (12.0-15.5); MEAN CORPUSCULAR HEMOGLOBIN 27.9 pg (27.0-33.0); MEAN CORPUSCULAR VOLUME 87.1 fl (80.0-96.0); PLATELET COUNT, AUTOMATED 214 10^3/uL (150-450); RED BLOOD COUNT 3.73 10^6/uL (4.00-5.40); WHITE BLOOD COUNT 10.5 10^3/uL (4.0-10.0)
[2020-12-11 19:50] LABS: HEMOGLOBIN A1c 6.3 %
[2020-12-12 04:56] LABS: GC DNA AMPLIFICATION NEGATIVE (NEGATIVE)
== END ==
LOC: M PLALAB 15:00
PROVIDERS: ATTEND Specialist
DX: O24.012 Pre-existing type 1 diabetes mellitus, in pregnancy, second trimester (principal)

== ENCOUNTER → 2020-12-31 | Outpatient (CLI) | payer OTHER ==
--- NOTE | 2020-12-31 15:01 | REP ---
INDICATION: BPP/GROWTH/GEST DIABETES. COMPARISON: Comparison sonography November 25, 2020. TECHNIQUE: Transabdominal obstetric sonography. FINDINGS: Scanning through the gravid uterus demonstrates a viable single intrauterine gestation in breech lie. motion is observed and heart rate is recorded at 140 beats per minute. A posterior placenta is seen, grade 1, without evidence of placenta previa. Closed cervical length is not measured. No extrauterine abnormality is observed. Amniotic fluid is subjectively normal, WILLIAM normal 13.7 cm.. Biometry chart: BPD 7.2 cm, 28 weeks 6 days Head circumference 26.1 cm, 28 weeks 3 days Abdominal circumference 24.2 cm, 28 weeks 3 days Femur length 5.3 cm, 28 weeks 2 days Humeral length 4.8 cm, 28 weeks 2 days HC AC ratio normal 1.08 Cephalic index normal 0.77 Estimated weight 1226 g, 2 lb 11 oz, 43rd percentile for 28 weeks 2 days Biophysical profile score 8 out of a possible 8 SD ratio in the umbilical card artery by Doppler normal 3.33 IMPRESSION: Viable single intrauterine gestation at 28 weeks 3 days by today's composite sonographic criteria. JAVAN by today's sonography March 22, 2021. No complication identified. Expected gestational age estimate based on known JAVAN of 23 March 2021 is 28 weeks 2 days. Appropriate interval growth. <Electronically signed by Gavino Nolasco > 12/31/20 [id number]
== END ==
LOC: M WHC 13:03
PROVIDERS: ATTEND Obstetrics & Gynecology
DX: O24.012 Pre-existing type 1 diabetes mellitus, in pregnancy, second trimester (principal)

== ENCOUNTER → 2021-02-04 | Outpatient (CLI) | payer OTHER ==
--- NOTE | 2021-02-04 12:37 | REP ---
INDICATION: GROWTH TYPE 1 DIABETES. COMPARISON: None. TECHNIQUE: Transabdominal scanning FINDINGS: Multiple ultrasonographic images of the gravid uterus shows a single living intrauterine gestation in the cephalic presentation. Doppler interrogation of the heart shows a heart rate of 167 beats per minute. The placenta is posterior and does not appear to be low-lying. Secondary to the low position of the head an accurate cervical length measurement could not be obtained. The subjective amniotic fluid volume is increased. The calculated amniotic fluid index is 24.7 within expected range 8.2 to 24.6. Doppler interrogation of the umbilical artery shows an A\B ratio of 2.54. This is within the normal range. BPD:: 8.4 cm 33 weeks 5 days HC: 30.5 cm 33 weeks 6 days AC: 30.1 cm 34 weeks 0 days FL: 6.3 cm 32 weeks 3 days The estimated weight is 2223 g which is at the 50th percentile for 33 week 2 day gestational age. IMPRESSION: Single living intrauterine gestation as described above with an estimated gestational age of 33 weeks 4 days via composite criteria and an estimated date of delivery of 03/21/2021 by today's exam. There is evidence of mild polyhydramnios. <Electronically signed by Jluis Smith > 02/04/21 [id number]
== END ==
LOC: M WHC 11:15
PROVIDERS: ATTEND Obstetrics & Gynecology
DX: O24.013 Pre-existing type 1 diabetes mellitus, in pregnancy, third trimester (principal); Z3A.33 33 weeks gestation of pregnancy

== ENCOUNTER → 2021-02-11 | Outpatient (CLI) | payer OTHER ==
--- NOTE | 2021-02-11 17:48 | REP ---
INDICATION: PRE-EXISTING TYPE 1 DIABETES, IN , THIRD TRIMESTER. COMPARISON: 02/04/2021. TECHNIQUE: Real-time sonographic evaluation of the gravid uterus performed. FINDINGS: Estimated gestational age is34 weeks 2 days, EDC 03/23/2021. Presentation: Cephalic Placenta posterior, grade 2, without evidence of placenta previa. heart rate is recorded at 138 beats per minute. Amniotic fluid is subjectively normal. WILLIAM 21.5, normal range 8.0-24.8. Biophysical profile score 8/8. SD ratio umbilical artery 2.14, normal 1.72-3.65. RI 0.53, normal 0.47-0.73. Closed cervical length is measured at 4.2 cm. IMPRESSION: Viable single intrauterine gestation as above. <Electronically signed by Alvaro Art > 02/11/21 [id number]
== END ==
LOC: M RAD 16:29
PROVIDERS: ATTEND Obstetrics & Gynecology
DX: O24.013 Pre-existing type 1 diabetes mellitus, in pregnancy, third trimester (principal)

== ENCOUNTER → 2021-02-18 | Outpatient (CLI) | payer OTHER ==
--- NOTE | 2021-02-18 16:31 | REP ---
INDICATION: NONREACTIVE NST. COMPARISON: 02/11/2021. TECHNIQUE: Real-time sonographic evaluation of gravid uterus. FINDINGS: There is a single living intrauterine gestation. The estimated gestational age is reportedly 35 weeks 2 days, EDC 03/23/2021. position cephalic. Placenta posterior and grade 1 with no previa. heart rate 143 beats per minute. Amniotic fluid within normal limits. WILLIAM 19.6, normal range 7.8-24.9. Biophysical profile score 8/8. SD ratio 2.38, normal 1.67-3.57. RI 0.58, normal 0.46-0.72. IMPRESSION: Biophysical profile score 8/8. <Electronically signed by Alvaro Art > 02/18/21 1611
== END ==
LOC: M WHC 15:41
PROVIDERS: ATTEND Obstetrics & Gynecology
DX: Z36.2 Encounter for other antenatal screening follow-up (principal); Z3A.35 35 weeks gestation of pregnancy; O28.8 Other abnormal findings on antenatal screening of mother

== ENCOUNTER 2021-03-02 08:26 | Inpatient (IN) | payer OTHER ==
[~2021-03-02] VITALS: Ht 154.9 cm; Wt 97.3 kg
[2021-03-02] VITALS (12 sets, daily range): BP systolic 104–140; BP diastolic 56–81
[2021-03-02] MEDS ORDERED: PRENTAB16 PO (08:56)
[2021-03-02] MEDS ORDERED: OMEP40CA4 PO (08:56)
[2021-03-02] MEDS ORDERED: TRANEXAMIC ACID INJection 1,000 MG in NS 100 ML IV PRN (09:25)
[2021-03-02] MEDS ORDERED: INSULIN IV RATE CHANGE DOCUMENTATION ML/HR XX SCH (09:25)
[2021-03-02] MEDS ORDERED: OXYTOCIN DRIP 30 UNITS in IV 1 EA IV PRN (09:25)
[2021-03-02] MEDS ORDERED: CARBOPROST TROMETHAMINE 250 MCG/ML AMP IM PRN (09:25)
[2021-03-02] MEDS ORDERED: LIDOCAINE 1% MDV 20ML VIAL INFIL PRN (09:25)
[2021-03-02] MEDS ORDERED: METHYLERGONOVINE MALEATE 0.2 MG/ML VIAL (J2210) IM PRN (09:25)
[2021-03-02] MEDS ORDERED: D5W/0.9% SODIUM CHLORIDE 1,000 ML IV SCH (09:25)
[2021-03-02] MEDS: INSULIN REGULAR IN 0.9 % NACL 100 UNIT in IV 1 EA IV SCH ×8 (10:23→21:43)
[2021-03-02] MEDS: NS 1,000 ML IV SCH ×2 (10:23→16:53)
[2021-03-02 10:35] LABS: HEMATOCRIT 32.2 % (36.0-47.0); HEMOGLOBIN 10.5 g/dl (12.0-15.5); MEAN CORPUSCULAR HEMOGLOBIN 26.9 pg (27.0-33.0); MEAN CORPUSCULAR HGB CONC 32.6 g/dl (32.0-36.5); MEAN CORPUSCULAR VOLUME 82.6 fl (80.0-96.0); PLATELET COUNT, AUTOMATED 231 10^3/uL (150-450); WHITE BLOOD COUNT 8.7 10^3/uL (4.0-10.0)
[2021-03-02] MEDS: OMEPRAZOLE 20 MG CAP PO SCH (10:38)
[2021-03-02] MEDS: miSOPROStol 50MCG 1/2 TABLET PO SCH ×3 (11:30→19:47)
--- NOTE | 2021-03-02 11:44 | HPEPDOC ---
Obstetrical History & Physical General Date of Admission Mar 02, 2021 at 08:26 Primary Care Physician: TINA FELIX CNM History of Present Illness Cheryl is a 35 year old at 37 weeks with an JAVAN of 03/23/21 established with first trimester ultrasound who presents to labor and delivery for IOL for Pre-existing DM Type-1. She established care at [facility] and her has been complicated by DM1, obesity, previous delivery at 35 weeks gestation after PPROM, and depression. Patient denies any loss of fluids, vaginal bleeding, or uterine contractions and she notes good movement. Chief Complaint: Induction of labor Information Provided By: Patient Age: 35 : 2 Term: 0 Pre-term: 1 Abortions: 0 Livin Care Care: Good Care Dating Final EDC: Mar 23, 2021 Final EDC by: 1st trimester (US) LMP: Jun 16, 2020 EGA at Admission: 37.0 Antepartum Course Diagnos(e)s Pre-existing DM Type 1 and obesity Height (inches): 61 Pre- weight (lbs.): 208 Admission Weight (lbs.): 211.2 Change in Weight (lbs.): 3 Past Medical History Past Obstetrical History : Date of Delivery: Jul 12, 2017 Gestation: 35 Type of Delivery: Spontaneous Vaginal Del. Sex of : Male (6# 9 oz) Complications: Yes (PPROM, delivery, Pre-existing Diabetes) G[employer] ST[employer]ER History: Abnormal Pap (2012), Other (PID 2005) Past Medical History Medical History DM1, depression, IBS, AGGIE, osteoporosis, environmental allergies Surgical History: Upper endoscopy (and colonoscopy, 2015), Other (R femur fracture 1994, bilateral cataracts 2014, ankle fracture 2018) Family History Significant Family History: Diabetes (mother, ) Social History Marital Status: Family situation: Spouse/partner home Psychosocial History: Depression * Smoker: non-smoker Alcohol: Denies Drugs: denies Abuse Violence Screening Have you been hit/kicked/slapp: No Have you been sexually assault: No Imunizations Tdap status: current Influenza Status: current Allergies Coded Allergies: No Known Allergies (Unverified , 03/02/21) Medications Scheduled Omeprazole (Omeprazole) 40 Mg Capsule.dr, 50 MG PO DAILY 21/Iron Fu/Folic Acid ( Complete Caplet) 1 Each Tablet, 1 TAB PO DAILY Miscellaneous Medications Insulin Lispro (Humalog) 100 Unit/Ml Inj, 100 UNITS SC Insulin pump Physical Examination Physical Examination GENERAL: Alert and oriented times three. ABDOMEN: Gravid and non-tender to touch. FETUS: Is vertex (VTX) by sterile vaginal examination (SVE), fetus is vertex (VTX) by Good. EFW: 3423 grams LUNGS: breathing comfortably on room air, no use of accessory muscles. EXTREMITIES: mild bilateral pedal edema. Vital Signs/I&O Vital Signs Label Value Date Time Patient Temperature 97.4 degrees F 03/02/21 0848 Temperature Source Temporal 03/02/21 0848 Pulse 108 03/02/21 0848 Respiratory Rate 18 bpm 03/02/21 0848 Blood Pressure Assessment 130/77 (94) 03/02/21 0848 Source Automatic Cuff (NIBP) Bedside Pulse Oximetry 99 % 03/02/21 0848 Laboratory Data 24H LABS Laboratory Tests 2 03/02/21 08:42: Serology Scanned Report Hepatitis B Testing 03/02/21 09:41: Bedside Glucose (Misc Panel) 125H 03/02/21 10:15: Nucleated Red Blood Cells % (auto) 0.0 03/02/21 10:48: CBC/BMP Laboratory Tests 03/02/21 10:15 Urine Culture: No Growth Pertinent Laboratoy Data Blood Type: O+ RBC Antibody Screen: Negative HIV: Negative Hepatitis B: Negative Hepatitis C: Negative Rapid Plasma Reagin: Nonreactive Rubella: Immune Varicella: Immune Chlamydia/Gonorrhea: Negative Group B Streptococcus: Negative Anatomy Ultrasound Ultrasound Date: Oct 30, 2020 Placenta Location: Posterior Normal Anatomy: Yes Placenta Previa: No Estimated Weight (grams): 288 Other Ultrasounds 02/04/21, EFW 2223 gm Vaginal Examination Dilation: Fingertip Effacement: 30% Station: -3 Cervical Consistency: Soft Cervical Position: Posterior Presentation: Cephalic presentation Assessment Heart Rate (FHR): 140 Variability: Moderate Accelerations: Positive Decelerations: None Tocometer Contractions: Yes Frequency: irregular Multi-drug resistant Organism: No history of MDRO Assessment/Plan Assessment IUP at 37 weeks, IOL for DM1. Plan Admit to labor and delivery for IOL. Plan of care collaborated with Dr. Salgado. Counselled on use of misoprostol for cervical ripening, kline bulb for mechanical dilation, and use of IV Pitocin for induction of labor. Diet: controlled carbohydrate. Group B Streptococcus (GBS) negative. Labs and intravenous (IV) per unit protocol. Anesthesia consult per patient request. Reviewed insulin drip and FS q 2hr in latent labor and then FS q 1hr when in active labor. NS: Bolus 800 mL prior to epidural, then at 125 mL/hr. Start Misoprostol per order. Anticipate cervical ripening. C-S as appropriate. TINA FELIX CNM Mar 02, 2021 11:43
[2021-03-02] MEDS ORDERED: HOME MED LIST COMPLETE! XX SCH (12:10)
[2021-03-02] MEDS ORDERED: OXYTOCIN DRIP 30 UNITS in IV 1 EA IV SCH (23:50)
--- NOTE | 2021-03-02 23:50 | IPNPDOC ---
Obstetrical Progress Note Date of Service Mar 02, 2021 Subjective Patient reports she feels some cramping. Objective Vital Signs Date Time Temp Pulse Resp B/P (MAP) Pulse Ox O2 Delivery O2 Flow Rate FiO2 03/02/21 22:38 91 130/66 (87) 03/02/21 21:52 97.2 18 Room Air 03/02/21 08:48 99 Assessment Heart Rate (FHR): 130 Variability: Moderate Accelerations: Positive Decelerations: None Heart Rate Tracing: Category I Tocometer Contractions: Yes Frequency: regular, every 2-5 min. Sterile Vaginal Examination Dilation: 3 cm Effacement (%): 50% Station: -3 Cervical Consistency: Soft Cervical Position: Middle Postion/Presentation: Cephalic presentation Assessment and Plan Age: 35 EGA at Admission: 37 Status: Reassuring Group B Streptococcus: Negative Anticipate: Vaginal Delivery Additional Comments Mahoney bulb placed with 60/40 of normal saline. Patient tolerated well. IV Pitocin ordered and to be started. TINA FELIX CNM Mar 02, 2021 23:50
[2021-03-03] VITALS (56 sets, daily range): BP systolic 96–188; BP diastolic 50–90
--- NOTE | 2021-03-03 00:13 | IPNPDOC ---
Obstetrical Progress Note Date of Service Mar 03, 2021 Subjective Patient desires to keep pushing at this time. She reports she is doing well. Feeling pressure and the need to push when she gets her contractions. Objective Vital Signs Date Time Temp Pulse Resp B/P (MAP) Pulse Ox O2 Delivery O2 Flow Rate FiO2 03/02/21 22:38 91 130/66 (87) 03/02/21 21:52 97.2 18 Room Air 03/02/21 08:48 99 Assessment Heart Rate (FHR): 140 Variability: Moderate Decelerations: Variable Heart Rate Tracing: Category II Tocometer Contractions: Yes Frequency: regular Sterile Vaginal Examination Dilation: complete Station: +1, +2 Assessment and Plan Age: 35 : 1 Term: 0 Pre-term: 0 Abortions: 0 Livin EGA at Admission: 39.1 Weeks & Days Now patient is 39.2 weeks gestation Status: Reassuring Group B Streptococcus: Negative Additional Comments Dr. Salgado notified that patient has been pushing for a little over 3 hours. Instr ucted to come into hospital for evaluation. TINA FELIX CNM Mar 03, 2021 00:13
[2021-03-03] MEDS: NS 1,000 ML IV SCH ×3 (00:24→12:34)
[2021-03-03] MEDS: INSULIN REGULAR IN 0.9 % NACL 100 UNIT in IV 1 EA IV SCH ×2 (05:34)
[2021-03-03] MEDS: OMEPRAZOLE 20 MG CAP PO SCH (09:00)
--- NOTE | 2021-03-03 09:15 | IPNPDOC ---
Obstetrical Progress Note Date of Service Mar 03, 2021 Subjective Pt getting more uncomfortable, requesting pain medication. Objective Vital Signs Date Time Temp Pulse Resp B/P (MAP) Pulse Ox O2 Delivery O2 Flow Rate FiO2 03/03/21 07:50 90 18 109/55 (73) Room Air 03/03/21 07:19 98.1 03/02/21 08:48 99 Assessment Heart Rate (FHR): 130 Variability: Moderate Accelerations: Positive Decelerations: None Heart Rate Tracing: Category I Tocometer Contractions: Yes Frequency: regular Sterile Vaginal Examination Dilation: 5 cm Effacement (%): 80% Station: -1 Cervical Consistency: Medium Cervical Position: Middle Assessment and Plan Age: 35 : 2 Term: 1 Status: Reassuring Anticipate: Vaginal Delivery (epidural at this time, will AROM once comfortable) BRANDY NATHAN MD Mar 03, 2021 09:15
[2021-03-03] MEDS ORDERED: diphenhydrAMINE 50MG/ML VIAL (J1200) IV PRN (10:40)
[2021-03-03] MEDS ORDERED: NALOXONE INJ 0.4MG/1ML VIAL (J2310 PER 1MG) IV PRN (10:40)
[2021-03-03] MEDS ORDERED: ePHEDrine SULFATE 25 MG/5 ML(5MG/ML) SYRINGE IV PRN (10:40)
[2021-03-03] MEDS ORDERED: REFRIGERATOR IV KEYS XX PRN (10:40)
[2021-03-03] MEDS ORDERED: EPIDURAL/PCA KEYS XX PRN (10:40)
[2021-03-03] MEDS ORDERED: FENTANYL/ROPIVACAINE/NACL BAG 100 ML EPIDURAL SCH (10:40)
[2021-03-03] MEDS ORDERED: LACTATED RINGER'S 1000 ML IV PRN (10:40)
[2021-03-03] MEDS ORDERED: EPIDURAL COMMENT XX SCH (10:40)
[2021-03-03] MEDS ORDERED: ONDANSETRON 4MG/2ML VIAL IV PRN (10:40)
[2021-03-03] MEDS ORDERED: FENTANYL 2MCG/ML ROPIVACAINE 0.2% IN 0.9% NACL 100ML IVBAG As Ordered ONE (10:43)
--- NOTE | 2021-03-03 12:41 | IPNPDOC ---
Obstetrical Progress Note Date of Service Mar 03, 2021 Subjective Pt comfortable s/p epidural Objective Vital Signs Date Time Temp Pulse Resp B/P (MAP) Pulse Ox O2 Delivery O2 Flow Rate FiO2 03/03/21 09:52 86 18 136/69 (91) Room Air 03/03/21 07:19 98.1 03/02/21 08:48 99 Assessment Heart Rate (FHR): 140 Variability: Moderate Accelerations: Positive Decelerations: Variable Heart Rate Tracing: Category II Tocometer Frequency: regular Sterile Vaginal Examination Dilation: 7 cm Effacement (%): 80% Station: -1 Cervical Consistency: Soft Cervical Position: Middle Assessment and Plan Age: 35 : 2 Term: 1 Status: Reassuring Anticipate: Vaginal Delivery (SROM for clear at this time) BRANDY NATHAN MD Mar 03, 2021 12:41
--- NOTE | 2021-03-03 14:34 | IPNPDOC ---
Obstetrical Progress Note Date of Service Mar 03, 2021 Subjective Pt feeling more pressure Objective Vital Signs Date Time Temp Pulse Resp B/P (MAP) Pulse Ox O2 Delivery O2 Flow Rate FiO2 03/03/21 13:48 88 18 127/60 (82) Room Air 03/03/21 13:34 98.0 03/03/21 11:31 99 Assessment Heart Rate (FHR): 130 Variability: Moderate Accelerations: Positive Decelerations: Early Heart Rate Tracing: Category I Tocometer Contractions: Yes Frequency: regular Sterile Vaginal Examination Dilation: 7 cm Effacement (%): 80% Station: 0 Cervical Consistency: Soft Cervical Position: Middle Assessment and Plan Age: 35 : 2 Term: 1 Status: Reassuring Anticipate: Vaginal Delivery BRANDY NATHAN MD Mar 03, 2021 14:34
[2021-03-03] MEDS ORDERED: diphenhydrAMINE 50MG/ML VIAL (J1200) IV ONE (15:20)
[2021-03-03 17:39] LABS: CORD GAS ABE V -5.6; CORD GAS HCO3 V 19.1 MEQ/L; CORD GAS O2 SAT V 80.2 %; CORD GAS PCO2 V 35.5 mmHg; CORD GAS PH V 7.348 UNITS; CORD GAS PO2 V 32.8 mmHg; CORD GAS SBC V 19.5 MEQ/L; CORD GAS TCO2 V 20.2 MEQ/L
[2021-03-03] MEDS ORDERED: HumaLOG INSULIN (NovoLOG) PER UNIT SC SCH (17:45)
--- NOTE | 2021-03-03 18:20 | DNPDOC ---
[facility] Delivery Note Delivery Note DATE OF DELIVERY: 03/03/21 PREDELIVERY DIAGNOSIS: 37-1/7 weeks' gestation and labor. POST DELIVERY DIAGNOSIS: Delivered. PROCEDURE: Spontaneous vaginal delivery complicated by shoulder dystocia HEALTHCARE BUSINESS ANALYST: Dr. Nathan ANESTHESIA: epidural ESTIMATED BLOOD LOSS: 250 mL. FINDINGS: 7 pound 2 ounce female , Score /, no nuchal. Approx 60 second shoulder dystocia relieved w/ Claudia, suprapubic pressure, and Dan maneuver. DELIVERY SUMMARY: Patient is a 35-year-old 2 now para 2 who was admitted to labor and delivery for IOL 2/2 diagnosis of Type 1 DM controlled on insulin pump. Patient received 3 doses of cytotec. At approx 3cm, a kline balloon was placed and the patient was started on RDP. The kline catheter fell out and the patient was found to be 4cm. RDP was continued and patient received an epidural at 6cm. She spontaneous ruptured for clear fluid. She progress to 9cm dilated with and anterior lip which was manually reduced. Pt pushed well over several contractions. Upon delivery of the head, the rest of the body failed to deliver with usual maneuvers and a shoulder dystocia was identified. The patient was instructed to stop pushing and was placed in Claudia position. Suprapubic pressure was then applied and the Dan maneuver was applied. Poor coordinated pushing from patient so provider's fingers were used to grasp under the arms to deliver. The was delivered over an intact perineum. The cord was clamped and cute and the was taken to the warmer for assessment. Venous cord gasses were collected but there was not enough sample for arterial. Pitocin bolus was started and the placenta was delivered with expression. Patient had a small perineal abrasion that was repaired with a figure of 8 suture. Sharp and sponge count correct. BRANDY NATHAN MD Mar 03, 2021 18:20
[2021-03-03] MEDS ORDERED: **NOTE PATIENT COMMENT** MISC XX SCH (18:30)
[2021-03-03] MEDS ORDERED: MEASLES,MUMPS,RUBELLA VACCINE INJ (MMR-II) (90707) SC SCH (19:40)
[2021-03-03] MEDS ORDERED: METHYLERGONOVINE MALEATE 0.2 MG TAB PO PRN (19:40)
[2021-03-03] MEDS ORDERED: DOCUSATE SODIUM 100MG CAPSULE PO PRN (19:40)
[2021-03-03] MEDS ORDERED: RHOGAM 300 MCG (1500 IU) INJ (J2790) IM SCH (19:40)
[2021-03-03] MEDS ORDERED: DIBUCAINE 1% OINTMENT 30GM TOP PRN (19:40)
[2021-03-03] MEDS: ACETAMINOPHEN 500 MG TAB PO PRN (20:03)
[2021-03-04] MEDS: ACETAMINOPHEN 500 MG TAB PO PRN ×2 (03:23→13:10)
[2021-03-04 05:59] VITALS: BP 121/62
[2021-03-04] MEDS: IBUPROFEN 600MG TAB PO PRN (09:05)
[2021-03-04] MEDS: PRENATAL VITAMINS CHEWABLE TABLET PO SCH (09:06)
[2021-03-04 17:50] VITALS: BP 116/62
[2021-03-05] MEDS: IBUPROFEN 600MG TAB PO PRN (02:05)
[2021-03-05 06:00] VITALS: BP 132/78
[2021-03-05] MEDS: PRENATAL VITAMINS CHEWABLE TABLET PO SCH (09:00)
--- NOTE | 2021-03-05 13:11 | IPNPDOC ---
Progress Note Date of Service: Mar 05, 2021 Day#: 2 Progress Note SUBJECT: Status post . She has been ambulating, voiding spontaneously with out issue and tolerating regular diet. Lochia decreasing/minimal. Pain is well- controlled. Denies headache, visual changes, right upper quadrant pain, shortness breath or chest pain. OBJECTIVE: VITAL SIGNS: Within normal limits, afebrile. Alert and oriented times three. Abdomen: Fundus firm at U-2. Soft, NTTP. ASSESSMENT: Status post uncomplicated spontaneous vaginal delivery. Vitals within normal limits, afebrile, hemodynamically stable with no evidence of infection. PLAN: Discharge to home today. Tylenol and Motrin for pain. Routine instructions/precautions reviewed. Routine PP visit in 6 weeks in clinic. VS, I&O, 24H, Fishbone Vital Signs/I&O Vital Signs Date Time Temp Pulse Resp B/P (MAP) Pulse Ox O2 Delivery O2 Flow Rate FiO2 03/05/21 06:00 97.8 90 20 132/78 (96) 99 Room Air Laboratory Data 24H LABS Laboratory Tests 2 03/04/21 21:06: Bedside Glucose (Misc Panel) 112H 03/05/21 07:56: Bedside Glucose (Misc Panel) 69L MEGHANN JOSEPH DO Mar 05, 2021 13:11
== END 2021-03-05 14:10 | disposition home or self-care (01) | DRG 560 ==
LOC: M LDI 08:26 → M OBS 03-03 19:57
PROVIDERS: ADMIT Advanced Practice Midwife; ATTEND Obstetrics & Gynecology
PROC: 3E0P7GC Introduction of Other Therapeutic Substance into Female Reproductive, Via Natural or Artificial Opening (ICD-10-PCS; 2021-03-02)
PROC: 10E0XZZ Delivery of Products of Conception, External Approach (ICD-10-PCS; principal; 2021-03-03)
DX: O24.02 Pre-existing type 1 diabetes mellitus, in childbirth (principal); E66.9 Obesity, unspecified; F32.A Depression, unspecified; O99.344 Other mental disorders complicating childbirth; Z3A.37 37 weeks gestation of pregnancy; O99.214 Obesity complicating childbirth; Z79.4 Long term (current) use of insulin; O66.0 Obstructed labor due to shoulder dystocia; Z37.0 Single live birth

== ENCOUNTER → 2021-08-20 | Outpatient (CLI) | payer OTHER ==
[~2021-08-20] MED LIST changes: +ISOVUE-300 61% 50ML VIAL As Ordered ONE; +LIDOCAINE 1% MDV 20ML VIAL As Ordered ONE; +OMEP40CA4 PO; +PRENTAB16 PO; +TRIAMCINOLONE ACETONIDE SUSP 40 MG/ML VIAL (J3301) As Ordered ONE
== END ==
LOC: M RADPRO 15:04
PROVIDERS: ATTEND Orthopaedic Surgery
DX: M75.02 Adhesive capsulitis of left shoulder (principal)

== ENCOUNTER → 2021-10-28 | Outpatient (CLI) | payer OTHER ==
[~2021-10-28] MED LIST changes: -ISOVUE-300 61% 50ML VIAL As Ordered ONE; -LIDOCAINE 1% MDV 20ML VIAL As Ordered ONE; -TRIAMCINOLONE ACETONIDE SUSP 40 MG/ML VIAL (J3301) As Ordered ONE
[2021-10-28 14:50] LABS: ALBUMIN 3.6 GM/DL (3.2-5.2); ALT/SGPT 21 U/L (12-78); BILIRUBIN,TOTAL 0.5 MG/DL (0.2-1.0); BLOOD UREA NITROGEN 11 MG/DL (7-18); CALCIUM LEVEL 8.8 MG/DL (8.5-10.1); CARBON DIOXIDE LEVEL 24 MEQ/L (21-32); CHLORIDE LEVEL 111 MEQ/L (98-107); CHOLESTEROL LEVEL 144 MG/DL (<200); CHOLESTEROL RISK RATIO 3.272 (<5); CREATININE FOR GFR 1.01 MG/DL (0.55-1.30); GLOMERULAR FILTRATION RATE > 60.0 (>60); GLUCOSE, FASTING 147 MG/DL (70-100); HDL CHOLESTEROL 44 MG/DL (>40); LDL CHOLESTEROL 87 MG/DL (<100); NON-HDL-C 100 MG/DL; POTASSIUM SERUM 4.5 MEQ/L (3.5-5.1); SODIUM LEVEL 140 MEQ/L (136-145); TOTAL PROTEIN 6.5 GM/DL (6.4-8.2); TRIGLYCERIDES LEVEL 63 MG/DL (<150)
== END ==
LOC: M PLALAB 10:21
PROVIDERS: ATTEND Nurse Practitioner Family
DX: E78.2 Mixed hyperlipidemia (principal)

== ENCOUNTER → 2022-04-05 | Outpatient (CLI) | payer OTHER ==
[~2022-04-05] MED LIST changes: +**SFHN** LIDOCAINE 1% MDV 20ML VIAL ONE; +**SFHN** TRIAMCINOLONE ACETONIDE SUSP 40 MG/ML 1ML VIAL ONE; +ISOVUE-300 61% 50ML VIAL ONE
== END ==
LOC: M PLAIMG 13:55
PROVIDERS: ATTEND Orthopaedic Surgery
DX: M24.612 Ankylosis, left shoulder (principal)
CPT/HCPCS: 20610; 76000; J3301

== ENCOUNTER → 2022-07-27 | Outpatient (CLI) | payer OTHER ==
[~2022-07-27] MED LIST changes: -**SFHN** LIDOCAINE 1% MDV 20ML VIAL ONE; -**SFHN** TRIAMCINOLONE ACETONIDE SUSP 40 MG/ML 1ML VIAL ONE; -ISOVUE-300 61% 50ML VIAL ONE
[2022-07-27 12:39] LABS: BASO % 0.3 % (0.0-1.0); EOS % 0.7 % (0.0-3.0); HEMATOCRIT 37.2 % (36.0-47.0); HEMOGLOBIN 11.8 g/dl (12.0-15.5); LYMPH # 1.3 10^3/uL (1.5-5.0); MEAN CORPUSCULAR HGB CONC 31.7 g/dl (32.0-36.5); MEAN CORPUSCULAR VOLUME 85.1 fl (80.0-96.0); MONO # 0.4 10^3/uL (0.0-0.8); MONO % 7.2 % (2.0-8.0); NEUTROPHILS # 4.1 10^3/uL (1.5-8.5); NEUTROPHILS % 69.5 % (36.0-66.0); PLATELET COUNT, AUTOMATED 214 10^3/uL (150-450); RED BLOOD COUNT 4.37 10^6/uL (4.00-5.40); WHITE BLOOD COUNT 5.9 10^3/uL (4.0-10.0)
[2022-07-27 12:57] LABS: LIPASE 31 U/L (12-53)
[2022-07-27 12:59] LABS: ALBUMIN 3.5 G/DL (3.2-5.2); ALKALINE PHOSPHATASE 99 U/L (46-116); ALT/SGPT 71 U/L (7.0-40); AMYLASE 44 U/L (30-118); AST/SGOT 59 U/L (<34); BILIRUBIN,TOTAL 0.4 MG/DL (0.3-1.2); BLOOD UREA NITROGEN 12 MG/DL (9-23); CALCIUM LEVEL 7.9 MG/DL (8.5-10.1); CARBON DIOXIDE LEVEL 22 MMOL/L (20-31); CHLORIDE LEVEL 113 MMOL/L (98-107); CREATININE FOR GFR 0.92 MG/DL (0.55-1.30); GLOMERULAR FILTRATION RATE > 60.0 (>60); GLUCOSE, FASTING 77 MG/DL (60-100); POTASSIUM SERUM 3.9 MMOL/L (3.5-5.1); SODIUM LEVEL 143 MMOL/L (136-145); TOTAL PROTEIN 5.9 G/DL (5.7-8.2)
== END ==
LOC: M WUC 11:12
PROVIDERS: ATTEND Physician Assistant
DX: R11.2 Nausea with vomiting, unspecified (principal)

== ENCOUNTER → 2022-08-16 | Outpatient (REF) | payer OTHER | LOC: M SFHCWAGY 15:07 | PROVIDERS: ATTEND Obstetrics & Gynecology | DX: Z01.419 Encounter for gynecological examination (general) (routine) without abnormal findings (principal) ==

== ENCOUNTER → 2022-10-20 | Outpatient (CLI) | payer OTHER ==
[2022-10-20 11:42] LABS: ALBUMIN 3.7 G/DL (3.2-5.2); ALKALINE PHOSPHATASE 102 U/L (46-116); ALT/SGPT 15 U/L (7.0-40); AST/SGOT < 8 U/L (<34); BILIRUBIN,TOTAL 0.5 MG/DL (0.3-1.2); BLOOD UREA NITROGEN 16 MG/DL (9-23); CALCIUM LEVEL 9.2 MG/DL (8.5-10.1); CARBON DIOXIDE LEVEL 22 MMOL/L (20-31); CHLORIDE LEVEL 108 MMOL/L (98-107); CHOLESTEROL LEVEL 123 MG/DL (<200); CHOLESTEROL RISK RATIO 3.85 (<5); CREATININE FOR GFR 0.94 MG/DL (0.55-1.30); GLOMERULAR FILTRATION RATE > 60.0 (>60); GLUCOSE, FASTING 195 MG/DL (60-100); HDL CHOLESTEROL 31.9 MG/DL (>40); LDL CHOLESTEROL 62.5 MG/DL (<100); NON-HDL-C 91.1 MG/DL; POTASSIUM SERUM 4.4 MMOL/L (3.5-5.1); SODIUM LEVEL 135 MMOL/L (136-145); TOTAL PROTEIN 6.3 G/DL (5.7-8.2); TRIGLYCERIDES LEVEL 143 MG/DL (<150)
[2022-10-20 11:49] LABS: CREATININE, URINE 63.9 MG/DL
[2022-10-20 11:51] LABS: MAU/CREAT RATIO 388.1 MCG/MG (0.0-30.0)
== END ==
LOC: M WUC 08:21
PROVIDERS: ATTEND Nurse Practitioner Family
DX: E78.2 Mixed hyperlipidemia (principal); E10.649 Type 1 diabetes mellitus with hypoglycemia without coma

== ENCOUNTER → 2023-05-10 | Outpatient (REF) | payer OTHER ==
[2023-05-10 17:49] LABS: RSV AMPLIFICATION NEGATIVE (NEGATIVE)
== END ==
LOC: M LAB REF 16:24
PROVIDERS: ATTEND Physician Assistant
DX: J06.9 Acute upper respiratory infection, unspecified (principal)

== ENCOUNTER → 2023-10-04 | Outpatient (REF) | payer OTHER ==
[2023-10-04 20:40] LABS: Trichomonas vaginalis (AMP) NOT DETECTED (NEGATIVE)
[2023-10-04 21:04] LABS: GC DNA AMPLIFICATION NEGATIVE (NEGATIVE)
== END ==
LOC: M PLALAB 14:43
PROVIDERS: ATTEND Obstetrics & Gynecology
DX: Z11.3 Encounter for screening for infections with a predominantly sexual mode of transmission (principal)

== ENCOUNTER → 2023-11-09 | Outpatient (CLI) | payer OTHER | LOC: M WHC 12:26 | PROVIDERS: ATTEND Obstetrics & Gynecology | DX: M81.0 Age-related osteoporosis without current pathological fracture (principal) ==

== ENCOUNTER → 2024-02-17 | Outpatient (CLI) | payer OTHER ==
[2024-02-17 19:24] LABS: BASO # 0.1 10^3/uL (0.0-0.2); BASO % 0.7 % (0.0-1.0); EOS # 0.2 10^3/uL (0.0-0.5); EOS % 1.9 % (0.0-3.0); HEMATOCRIT 39.7 % (36.0-47.0); HEMOGLOBIN 12.5 g/dl (12.0-15.5); LYMPH # 2.4 10^3/uL (1.5-5.0); LYMPH % 25.6 % (24.0-44.0); MEAN CORPUSCULAR HEMOGLOBIN 28.5 pg (27.0-33.0); MEAN CORPUSCULAR HGB CONC 31.5 g/dl (32.0-36.5); MEAN CORPUSCULAR VOLUME 90.6 fl (80.0-96.0); MONO # 0.5 10^3/uL (0.0-0.8); MONO % 4.8 % (2.0-8.0); NEUTROPHILS # 6.3 10^3/uL (1.5-8.5); NEUTROPHILS % 66.8 % (36.0-66.0); PLATELET COUNT, AUTOMATED 256 10^3/uL (150-450); RED BLOOD COUNT 4.38 10^6/uL (4.00-5.40); WHITE BLOOD COUNT 9.4 10^3/uL (4.0-10.0)
[2024-02-17 19:31] LABS: LIPASE 45 U/L (12-53)
[2024-02-17 19:33] LABS: ALBUMIN 3.8 G/DL (3.2-5.2); ALKALINE PHOSPHATASE 109 U/L (35-104); ALT/SGPT 23 U/L (7.0-40); AMYLASE 62 U/L (30-118); AST/SGOT 14 U/L (<34); BILIRUBIN,TOTAL 0.5 MG/DL (0.3-1.2); BLOOD UREA NITROGEN 14 MG/DL (9-23); CALCIUM LEVEL 9.1 MG/DL (8.5-10.1); CARBON DIOXIDE LEVEL 24 MMOL/L (20-31); CHLORIDE LEVEL 112 MMOL/L (98-107); CREATININE FOR GFR 0.97 MG/DL (0.55-1.30); GLOMERULAR FILTRATION RATE > 60.0 (>60); GLUCOSE, FASTING 94 MG/DL (60-100); POTASSIUM SERUM 4.2 MMOL/L (3.5-5.1); SODIUM LEVEL 143 MMOL/L (136-145); TOTAL PROTEIN 6.5 G/DL (5.7-8.2)
== END ==
LOC: M WUC 11:33
PROVIDERS: ATTEND Internal Medicine
DX: R19.7 Diarrhea, unspecified (principal)

== ENCOUNTER → 2024-02-21 | Outpatient (CLI) | payer OTHER ==
[~2024-02-21] MED LIST changes: +GASTROGRAFIN SOLUTION 30ML ONE; +ISOVUE-370 76% 100ML VIAL ONE
== END ==
LOC: M PLAIMG 11:48
PROVIDERS: ATTEND Internal Medicine
DX: R19.7 Diarrhea, unspecified (principal); R10.9 Unspecified abdominal pain

== ENCOUNTER → 2024-06-20 | Outpatient (CLI) | payer OTHER ==
[~2024-06-20] MED LIST changes: -GASTROGRAFIN SOLUTION 30ML ONE; -ISOVUE-370 76% 100ML VIAL ONE
== END ==
LOC: M PLALAB 09:33
DX: R19.8 Other specified symptoms and signs involving the digestive system and abdomen (principal)

== ENCOUNTER → 2025-01-30 | Outpatient (CLI) | payer OTHER ==
[~2025-01-30] MED LIST changes: +LISI40TA10 PO; -LISI40TA4 PO
[2025-01-30 13:25] LABS: ESTRADIOL 67.6 PG/ML
[2025-01-30 13:26] LABS: LUTEINIZING HORMONE 4.3 mIU/ML; PROLACTIN 12.17 NG/ML
[2025-01-30 13:27] LABS: PROGESTERONE < 0.21 NG/ML
== END ==
LOC: M WUC 09:43
PROVIDERS: ATTEND Student in an Organized Health Care Education/Training Program
DX: L65.9 Nonscarring hair loss, unspecified (principal); E10.9 Type 1 diabetes mellitus without complications; E78.2 Mixed hyperlipidemia; N93.9 Abnormal uterine and vaginal bleeding, unspecified

== ENCOUNTER → 2025-01-30 | Outpatient (CLI) | payer OTHER ==
[2025-01-30 13:23] LABS: ALT/SGPT 19.0 U/L (7.0-40); AST/SGOT 19.0 U/L (<34); CALCIUM LEVEL 8.6 MG/DL (8.5-10.1); CARBON DIOXIDE LEVEL 26.0 MMOL/L (20-31); CHLORIDE LEVEL 106.0 MMOL/L (98-107); CHOLESTEROL LEVEL 164.0 MG/DL (<200); CHOLESTEROL RISK RATIO 3.74 (<5); CREATININE FOR GFR 1.0 MG/DL (0.55-1.30); GLOMERULAR FILTRATION RATE 74.0 (>60); LDL CHOLESTEROL 105.2 MG/DL (<100); NON-HDL-C 120.2 MG/DL; POTASSIUM SERUM 4.1 MMOL/L (3.5-5.1); SODIUM LEVEL 142.0 MMOL/L (136-145); TRIGLYCERIDES LEVEL 75.0 MG/DL (<150)
[2025-01-30 14:25] LABS: CREATININE, URINE 112.6 MG/DL; MALB URINE SIEMENS 181.0 MG/L; MAU/CREAT RATIO 160.7 MCG/MG (0.0-30.0)
== END ==
LOC: M WUC 09:44
PROVIDERS: ATTEND Nurse Practitioner Family
DX: E10.9 Type 1 diabetes mellitus without complications (principal); E78.2 Mixed hyperlipidemia

== ENCOUNTER → 2025-02-27 | Outpatient (CLI) | payer OTHER ==
[~2025-02-27] MED LIST changes: +ATOR1TAB21 PO; +DULA3PEN PO; +ERGO500029 PO; +LISI5TAB11 PO
== END ==
LOC: M RAD 06:33
PROVIDERS: ATTEND Internal Medicine Gastroenterology
DX: R11.2 Nausea with vomiting, unspecified (principal)
CPT/HCPCS: 78264; A9541

== ENCOUNTER 2025-03-06 09:35 | Day surgery (SDC) | payer OTHER ==
[~2025-03-06] VITALS: Ht 157.5 cm; Wt 87.0 kg
[~2025-03-06 09:35] MED LIST changes: +LIDOCAINE 2% 100 MG/5 ML SDV (FOR ANES.) As Ordered ONE
[2025-03-06] MEDS: DEXTROSE 50% 50 ML SYRINGE IV STA (11:35)
[2025-03-06 12:50] VITALS: TEMP 98.9
[2025-03-06 13:08] VITALS: BP 137/81; O2SAT 99
== END 2025-03-06 13:48 | disposition home or self-care (01) ==
LOC: M OPP 09:35
PROVIDERS: ATTEND Internal Medicine Gastroenterology
DX: K64.0 First degree hemorrhoids (principal); R19.7 Diarrhea, unspecified; K21.00 Gastro-esophageal reflux disease with esophagitis, without bleeding; K31.89 Other diseases of stomach and duodenum; R10.13 Epigastric pain; Z79.4 Long term (current) use of insulin; Z79.85 Long-term (current) use of injectable non-insulin antidiabetic drugs; Z79.899 Other long term (current) drug therapy
CPT/HCPCS: 43239; 45380; 88305; J2765